=== PATIENT | female | born 1965 | race Caucasian/White ===

== ENCOUNTER 2020-06-30 02:02 | Outpatient (CLI) | payer OTHER, SELFPAY ==
[2020-06-30 17:23] LABS: SARS-CoV-2 RNA PCR Negative
== END 2020-06-30 02:03 | disposition home or self-care (01) ==
LOC: ANHCOVIDDT 02:02
PROVIDERS: PCP Internal Medicine; Visit Provider Internal Medicine Gastroenterology
DX: Z01.812 Encounter for preprocedural laboratory examination (principal); Z20.822 Contact with and (suspected) exposure to COVID-19
CPT/HCPCS: C9803; U0003

== ENCOUNTER 2020-07-03 01:20 | Day surgery (SDC) | payer OTHER, SELFPAY ==
[2020-06-20 11:08] VITALS: BMI 25.0
[2020-07-03 10:49] VITALS: BP 109/72; PULSE 86; RESP 16; TEMP 36.7; O2SAT 96
[2020-07-03] MEDS: LACTATED RINGERS 1,000 ML 150 ML IV CONT (11:04)
--- NOTE | 2020-07-03 11:23 | WPDANESEPPF ---
Anes - Initial Pre Proc Eval Procedure: Operation Date: 07/03/20 12:00 Proposed Procedures p Screening Colonoscopy - Wellington Whitt DO Date/Time: 07/03/20 11:23 Surgeon: Wellington Whitt DO Pre Op Diagnosis: hx of colon polyps Patient Data Age: 54 Gender: F Height: 5 ft Weight: 57.7 kg Last Vital Signs Temp 98.0 F 07/03/20 10:49 Pulse 86 07/03/20 10:49 Resp 16 07/03/20 10:49 BP 109/72 07/03/20 10:49 Pulse Ox 96 07/03/20 10:49 Allergies Allergy/AdvReac Type Severity Reaction Status Date / Time codeine AdvReac Severe Nausea and Verified 07/03/20 10:48 Vomiting Home Medications Medication Instructions Recorded Confirmed Type fluticasone propionate [Flonase 2 spray INTRANASAL DAILY PRN 05/02/19 06/20/20 History Allergy Relief] cholecalciferol (vitamin D3) 2,000 unit PO DAILY 06/20/20 06/20/20 History [Vitamin D3] estradiol-progesterone [Bijuva] 1 cap PO DAILY 06/20/20 06/20/20 History undvcpdvtfdz-fzjz-hgwuv acid 1 tablet PO DAILY 06/20/20 06/20/20 History [Centrum Women] omeprazole magnesium [Prilosec OTC] 20 mg PO DAILY PRN 06/20/20 06/20/20 History terbinafine HCl 250 mg PO DAILY 06/20/20 06/20/20 History trazodone 50 mg PO HS 06/20/20 06/20/20 History Patient hx anesthesia problems: none Family hx anesthesia problems: none PMFSH Past Medical History Medical History (Updated 07/03/20 @ 11:23 by Rancho Morales MD) Anemia GERD (gastroesophageal reflux disease) Social History Social History Smoking status: Never smoker Alcohol intake: current Drinks per week: 2 Substance use: never Substance use type: does not use Living arrangements: with family Spiritual care concerns: No Anes - Eval Final PreProcedure Day of Procedure 07/03/20 11:23 Patient weight: normal Heart: regular rate and rhythm Lungs: clear to auscultation Airway: Mallampati scale class II Neurological: alert and oriented Last oral intake: >/= 8 hours ASA classification: II Emergent: no Anesthetic plan: proceed Anesthesia type and monitoring: general GIVS and standard monitoring Informed Consent: The patient's anesthetic plan and its attendant risks and benefits were discussed with the patient/family/POA. Questions were solicited and answers provided to the satisfaction of the patient/family/POA.
--- NOTE | 2020-07-03 12:44 | PM.IMHP ---
H&P: HPI History of Present Illness Date/Time: 07/03/20 12:44 Chief Complaint: Reason for visit is colonoscopy. Narrative: Reason for visit is colonoscopy. This very pleasant lady seen in consultation request of the primary physician. Impression: [place] pleasant lady with history adenomatous colon polyps. She is here for screening and surveillance colonoscopy. She has had a change in bowel habits. Underlying inflammatory or neoplastic disease will be excluded. History of peptic ulcer disease. Recommendation: Colonoscopy. History: Virginie pleasant lady has a history adenomatous colon polyps. She reports increasing gas buildup. She noticed a change in her stools from more firm stool to a softer stool. This been going on for the last year. Hematochezia, melena and acholic stools at night. Abdominal pain is tonight. Fever, chills and night sweats at night. She is here for colonoscopy to assess for lung inflammatory neoplastic disease. The patient also has a history peptic ulcer disease. Upper gastrointestinal symptoms are denied. Physical examination: General: very pleasant patient in no acute distress. HEENT: Head was normocephalic sclerae is clear mouth without masses neck was supple. Heart: Rate rhythm regular without S3 or S4. Lungs: CTA. Abdomen: Soft with no guarding or rigidity. Bowel sounds were active. Neurologic: Cranial nerves 2 through 12 intact. No focal defects. No clonus. Musculoskeletal system: Revealed no joint tenderness or swelling no muscle atrophy. Extremities: Reveal no significant edema. Skin: Warm and dry with normal turgor. Mental status: intact. Patient is alert and oriented. Review of Systems Review of Systems: All systems reviewed & are unremarkable except as noted in HPI and below PMFSH Past Medical History Medical History (Updated 07/03/20 @ 11:23 by Rancho Morales MD) Anemia GERD (gastroesophageal reflux disease) Social History Social History Smoking status: Never smoker Alcohol intake: current Drinks per week: 2 Substance use: never Substance use type: does not use Living arrangements: with family Spiritual care concerns: No Meds Home Medications and Allergies Home Medications Medication Instructions Recorded Confirmed Type fluticasone propionate [Flonase 2 spray INTRANASAL DAILY PRN 05/02/19 06/20/20 History Allergy Relief] cholecalciferol (vitamin D3) 2,000 unit PO DAILY 06/20/20 06/20/20 History [Vitamin D3] estradiol-progesterone [Bijuva] 1 cap PO DAILY 06/20/20 06/20/20 History crtrunwzmeye-xtnv-bsgjc acid 1 tablet PO DAILY 06/20/20 06/20/20 History [Centrum Women] omeprazole magnesium [Prilosec OTC] 20 mg PO DAILY PRN 06/20/20 06/20/20 History terbinafine HCl 250 mg PO DAILY 06/20/20 06/20/20 History trazodone 50 mg PO HS 06/20/20 06/20/20 History Allergies Allergy/AdvReac Type Severity Reaction Status Date / Time codeine AdvReac Severe Nausea and Verified 07/03/20 10:48 Vomiting Vital Signs Vital Signs - 24 hr 07/03/20 10:49 Temperature 36.7 C Pulse Rate 86 Respiratory Rate 16 Blood Pressure 109/72 Pulse Oximetry 96
[2020-07-03 13:13] VITALS: BP 105/68; PULSE 68; RESP 19; O2SAT 96
[2020-07-03 13:23] VITALS: BP 104/66; PULSE 68; RESP 17; O2SAT 98
[2020-07-03 13:33] VITALS: BP 112/74; PULSE 63; RESP 15; O2SAT 100
== END 2020-07-03 13:47 | disposition home or self-care (01) ==
PROVIDERS: PCP Internal Medicine; Visit Provider Internal Medicine Gastroenterology
PROC: 0DJD8ZZ Inspection of Lower Intestinal Tract, Via Natural or Artificial Opening Endoscopic (ICD-10-PCS; CPT 45378; principal; 2020-07-03 12:00)
DX: Z12.11 Encounter for screening for malignant neoplasm of colon (principal); Z86.010 Personal history of colon polyps; D64.9 Anemia, unspecified; K21.9 Gastro-esophageal reflux disease without esophagitis; K27.9 Peptic ulcer, site unspecified, unspecified as acute or chronic, without hemorrhage or perforation
CPT/HCPCS: 45378; J2704; J7120

== ENCOUNTER 2020-09-19 16:01 | Emergency (ER) | payer OTHER, SELFPAY ==
[2020-09-19 16:06] VITALS: BP 127/77; PULSE 73; RESP 20; TEMP 37.4; O2SAT 99
--- NOTE | 2020-09-19 16:09 | ED.GENADULT ---
HPI - General Adult General Chief complaint: Abdominal Pain Stated complaint: abdominal pain Time Seen by Provider: 09/19/20 16:09 Source: patient Mode of arrival: ambulatory Limitations: no limitations History of Present Illness HPI narrative: 55-year-old female patient presents to the [facility] with complaints of abdominal pain. Patient states that she had lunch today at a new place and states she ate some quad and some fried food. Patient states she typically never eats fried food. Patient states about an hour and a half prior to coming to clinic started having some abdominal cramping has gotten more severe and now to the epigastric area. Otherwise in their interviewing and talking with the patient she suddenly decided that she needed to take her bra off because her bra was causing her to have chest pain. Patient was complaining of midsternal chest pain that radiated to her back with some shortness of breath and labored breathing during interview. Patient denies any nausea, vomiting or diarrhea. Related Data Home Medications Medication Instructions Recorded Confirmed cholecalciferol (vitamin D3) 2,000 unit PO DAILY 06/20/20 06/20/20 [Vitamin D3] estradiol-progesterone [Bijuva] 1 cap PO DAILY 06/20/20 06/20/20 eibkcqqcpazf-vkdw-majqf acid 1 tablet PO DAILY 06/20/20 06/20/20 [Centrum Women] trazodone 50 mg PO HS 06/20/20 06/20/20 Allergies Allergy/AdvReac Type Severity Reaction Status Date / Time codeine AdvReac Severe Nausea and Verified 07/03/20 10:48 Vomiting Review of Systems Review of Systems: Narrative: CONSTITUTIONAL: Denies fever, chills, or sweats. EYES: Denies visual changes, redness, or discharge. ENT: Denies rhinorrhea, congestion, sore throat, or otalgia. CARDIOVASCULAR: Positive midsternal chest pain, denies palpitations, or edema. RESPIRATORY: Denies cough positive dyspnea. GASTROINTESTINAL: Positive upper abdominal pain, nausea, denies vomiting, or diarrhea. GENITOURINARY: Denies dysuria or hematuria. SKIN: Denies rash or itching. MUSCULOSKELETAL: Positive mid back pain, denies joint pain, or myalgia. NEUROLOGIC: Denies headache, numbness, or weakness. PSYCHIATRIC: Denies anxiety or depression. [facility] Past Medical History Medical History (Updated 09/19/20 @ 16:34 by LIAM Dominguez) Anemia Bleeding acute gastric ulcer GERD (gastroesophageal reflux disease) Surgical History Surgical History (Updated 09/19/20 @ 16:11 by LIAM Dominguez) Joint replaced Left hip, right radial head, right humerus Social History Social History Smoking status: Never smoker Alcohol intake: current Drinks per week: 2 Substance use: never Substance use type: does not use Spiritual care concerns: No Comments At the time of my signature I agree with nursing past medical history, surgical, social, and family history. There is no relevant family history pertinent to the presenting complaint. Exam Narrative: Exam Narrative: GENERAL: Patient appears uncomfortable and in slight distress, well-nourished, HEAD: Normocephalic, atraumatic. EYES: PERRLA and EOMI. ENT: Nares clear, no rhinorrhea or epistaxis. Mucous membranes moist. NECK: Supple. No lymphadenopathy CHEST: Clear to auscultation. No respiratory distress. HEART: Regular rate and rhythm. No murmur heard. Normal peripheral pulses. ABDOMEN: Soft, distended. Positive guarding, no rebound tenderness, or rigid. Patient very tender to right upper quadrant, left upper quadrant and epigastric area on soft palpation. No pulsatilla masses. No organomegaly. Negative Sun?s sign. No periumbicial tenderness. No Supra public tenderness or distension. Good femoral pulses bilaterally. No hernia noted. No scars or surface trauma. EXTREMITIES: Normal range of motion. No edema. SKIN: Warm, dry, no rash. NEURO: No focal deficits. Alert and oriented x3. Course Vital Signs Vital signs
[2020-09-19 16:11] VITALS: BP 127/77; PULSE 73; RESP 20; TEMP 37.4; O2SAT 99
[2020-09-19] MEDS: ASPIRIN 81 MG CHEWABLE TABLET 324 MG PO (16:24)
[2020-09-19 16:28] VITALS: BP 116/72; PULSE 73
[2020-09-19 16:32] VITALS: BP 134/70; PULSE 66
--- NOTE | 2020-09-19 16:44 | ECG_ITS ---
Measurements Intervals [place] Rate: 65 P: 55 IN: 200 QRS: 42 QRSD: 90 T: 49 QT: 369 QTc: 384 Interpretive Statements SINUS RHYTHM LOW QRS VOLTAGE IN PRECORDIAL LEADS BORDERLINE ECG Electronically Signed On 09-19-2020 19:01:24 CDT by Last Bonilla D.O.
== END 2020-09-19 16:37 | disposition short-term general hospital (02) ==
PROVIDERS: Emergency Provider Nurse Practitioner Family; PCP Internal Medicine
DX: R06.02 Shortness of breath (principal); R10.11 Right upper quadrant pain; R10.12 Left upper quadrant pain; R10.13 Epigastric pain; R07.9 Chest pain, unspecified; K21.9 Gastro-esophageal reflux disease without esophagitis
CPT/HCPCS: 81003; 93005; 99215; A9270; G0463

== ENCOUNTER 2020-09-19 16:53 | Observation (INO) | payer OTHER, SELFPAY ==
--- NOTE | ~2020-09-19 | XR_ITS ---
EXAMINATION: XR chest 2V DATE: 09/19/2020 18:27 INDICATION: Abdominal pain. Chest pain. TECHNIQUE: Frontal and lateral views of the chest were obtained. COMPARISON: None. FINDINGS: The chest demonstrates clear lungs without pneumonia, pleural effusion, or pneumothorax. Th e heart size is normal. There are multiple old healed left rib fractures. There is plate and screw fi xation of right humerus. IMPRESSION: 1. No acute cardiopulmonary disease. Reviewed, dictated and finalized at location A.
--- NOTE | ~2020-09-19 | CT_ITS ---
EXAMINATION: CT chest abdomen pelvis w con DATE: 09/19/2020 22:05 INDICATION: Chest pain. Abdominal pain. TECHNIQUE: Computed tomography (CT) of the chest, abdomen, and pelvis was performed with 100 mL Omnip aque 350 intravenous contrast. Automated exposure control and iterative reconstruction technique were employed. The dose-length product was 326.70 mGy-cm. COMPARISON: None FINDINGS: CHEST CT: The lungs demonstrate minimal atelectasis. A calcified right lung nodule and calcified right hilar ly mph nodes are consistent with old granulomatous disease. No pleural effusion. The heart size is rosana l. No pericardial effusion. There are old healed left rib fractures. There is a hemangioma in T11 brad tebral body. ABDOMEN/PELVIS CT: The liver and spleen are normal. The gallbladder is distended. The common duct is dilated to 8 mm. Th e pancreas, adrenal glands, and kidneys are normal. There are no dilated loops of bowel. The appendix is not visualized. There are no pathologically enlarged lymph nodes. There is no free intraperitonea l fluid. There is plate and screw fixation of left acetabulum. IMPRESSION: 1. Gallbladder distention, which may be secondary to fasting. Correlate with physical exam to exclude acute cholecystitis. 2. Mildly dilated common duct. Reviewed, dictated and finalized at location A. IMPRESSION: 1. Gallbladder distention, which may be secondary to fasting. Correlate with ph ysical exam to exclude acute cholecystitis. 2. Mildly dilated common duct.
--- NOTE | ~2020-09-19 | NM_ITS ---
EXAMINATION: NM hepatobiliary w pharm DATE: 09/20/2020 14:14 INDICATION: Right upper quadrant abdominal pain. COMPARISON: None. TECHNIQUE: 5.1 mCi Tc-99m mebrofenin (Choletec) was administered intravenously. Scintigraphic images of the abdomen were obtained for one hour. 1.1 mcg sincalide (Kinevac) was administered by slow intr avenous infusion, and imaging was continued for 30 minutes. Gallbladder ejection fraction was calcula mariana by the technologist. FINDINGS: There is normal clearance of radiotracer from the blood pool. There is homogeneous tracer uptake by t he liver. Activity progresses to the gallbladder and bowel. The gallbladder ejection fraction (GBEF) is 20% (normal 10-90%, but most patient with gallbladder dysfunction have GBEF < 35% which does over lap with the normal range). IMPRESSION: 1. Gallbladder ejection fraction is at the lower range of normal. This could be normal but is also within the range of overlap with gallbladder dysfunction or chronic cholecystitis in the appropriate clinical setting. Reviewed, dictated and finalized at location A.
--- NOTE | ~2020-09-19 | US_ITS ---
US abdomen limited INDICATION: Abdomen pain PROCEDURE: Realtime right upper abdominal ultrasound. COMPARISON: No prior studies for comparison. FINDINGS: The pancreas is normal without focal mass or pancreatic ductal dilation. Liver echotexture is normal without focal mass or intrahepatic biliary dilatation. There is normal directional flow i n the portal vein. The gallbladder is normal without stones, gallbladder wall thickening or pericholecystic fluid. Comm on bile duct measures 7 mm. No sonographic Sun's sign. IMPRESSION: 1: Unremarkable limited abdominal ultrasound. Common bile duct upper normal. If there is concern for acalculous cholecystitis, consider correlation with nuclear hepatobiliary scan. Reviewed, dictated and finalized at location B. IMPRESSION: 1: Unremarkable limited abdominal ultrasound. Common bile duct upper normal. If there is concern for acalculous cholecystitis, consider correlation with nucle ar hepatobiliary scan.
--- NOTE | ~2020-09-19 | MR_ITS ---
EXAMINATION: MR MRCP wo/w con/w 3D wo ind DATE: 09/21/2020 12:16 INDICATION: Elevated liver enzymes. Abdominal pain. TECHNIQUE: Magnetic resonance imaging (MRI) of the abdomen was performed without and with 10 mL Multi eliezer intravenous contrast. Sequences included coronal T2-weighted SS-FSE, coronal T2-weighted FS SS- FSE, coronal T2-weighted FS FIESTA, axial T2-weighted FS FIESTA, axial T2-weighted FIESTA, sagittal T 2-weighted SS-FSE, axial T1-weighted dual-echo FSPGR, axial T2-weighted SS-FSE, axial T1-weighted LAV A, axial T2-weighted STIR FSE. Thick-slab T2-weighted FRFSE-XL images were obtained for magnetic reso nance cholangiopancreatography (MRCP). Rotating maximum intensity projection 3-D reconstructions of t he volumetric data were created by the technologist. Postcontrast sequences included a time course of axial T1-weighted LAVA. COMPARISON: CT dated 09/19/2020 FINDINGS: ABDOMEN MRI: Heart size is normal. No pericardial or pleural effusion. Liver, gallbladder, spleen, pa ncreas and bilateral adrenal glands are normal. Visualized bowels are unremarkable with no dilation t o suggest obstruction. There are couple low signal intensity fibroids at the fundus of the retroverte d uterus. Bladder is unremarkable. Small amount of likely physiologic free fluid in the pelvis. No pa thologically enlarged abdominal or pelvic lymphadenopathy. Large T1 hyperintense and fat saturating h emangioma at T11. Mild lumbar levocurvature with mild to moderate lumbar spondylosis. ABDOMEN MRCP: Mild dilation of the common bile duct to 7 mm in maximal diameter which tapers abruptly at the distal duct with no evident obstructing stones or masses. No intrahepatic biliary ductal dilation. Main quintanilla creatic duct is also normal in caliber. IMPRESSION: 1. Mild dilation of the common bile duct to 7 mm but without evident obstructing stones or masses. 2. Fibroid uterus. Reviewed, dictated and finalized at location A. IMPRESSION: 1. Mild dilation of the common bile duct to 7 mm but without evident obstructin g stones or masses. 2. Fibroid uterus.
[2020-09-19 18:07] VITALS: BP 125/74; PULSE 81; RESP 16; TEMP 37; O2SAT 100
--- NOTE | 2020-09-19 18:12 | ECG_ITS ---
Measurements Intervals [place] Rate: 74 P: 45 VA: 189 QRS: 50 QRSD: 86 T: 34 QT: 362 QTc: 402 Interpretive Statements SINUS RHYTHM BORDERLINE ST-T WAVE ABNORMALITY- INFERIOR LEADS BASELINE ARTIFACT- II, III, AVR, AVL, AVF, V5-V6 BORDERLINE ECG Electronically Signed On 09-19-2020 19:05:44 CDT by Last Bonilla D.O.
[2020-09-19 18:29] LABS: Basophils Absolute Auto 0.1 K/mm3 (0.0-0.1); Basophils Percent Auto 0.5 % (0.2-1.2); Eosinophils Absolute Auto 0.1 K/mm3 (0-0.3); Eosinophils Percent Auto 0.8 % (0-4.4); Hematocrit 35.4 % (37.0-47.0); Hemoglobin 12.6 g/dL (12.0-15.0); Immature Granulocyte Absolute 0.05 K/mm3 (0.00-0.031); Immature Granulocyte Percent A 0.4 % (0-0.5); Lymphocytes Absolute Auto 1.43 K/mm3 (0.9-3.2); Lymphocytes Percent Auto 10.9 % (18.3-44.2); Mean Corpuscular HGB Conc 35.6 g/dl (32-36); Mean Corpuscular Hemoglobin 30.2 pg (26-34); Mean Corpuscular Volume 84.9 fl (80-100); Mean Platelet Volume 9.3 fl (7.4-10.4); Monocytes Absolute Auto 0.9 K/mm3 (0.1-0.6); Monocytes Percent Auto 6.6 % (2.6-8.5); Neutrophils Absolute Auto 10.6 K/mm3 (1.3-6.7); Neutrophils Percent Auto 80.8 % (45.5-73.1); Platelet Count Result 260 k/mm3 (150-375); Red Blood Count 4.17 M/mm3 (4.2-5.4); Red Cell Distribution Width 12.2 % (11.5-14.5); White Blood Count 13.1 K/mm3 (4.5-10.0)
[2020-09-19 18:40] LABS: INR 0.9; Prothrombin Time 12.6 Seconds (11.1-14.7)
[2020-09-19 18:41] LABS: Partial Thromboplastin Time 25.9 SECONDS (22.3-36.8)
[2020-09-19 18:42] LABS: Alanine Aminotransferase 37 U/L (4-35); Albumin Level 4.3 g/dL (3.5-5.1); Alkaline Phosphatase 52 U/L (38-126); Anion Gap 8 mmol/L (8-16); Aspartate Amino Transferase 94 U/L (14-36); Bilirubin,Total 0.4 mg/dL (0.2-1.3); Blood Urea Nitrogen 11 mg/dL (7-17); Calcium 8.9 mg/dL (8.4-10.2); Carbon Dioxide 25 mmol/L (22-30); Chloride 101 mmol/L (98-107); Estimated CRCL calculation 50 ml/min; Estimated Glomerular Filt Rate > 60; Glucose 108 mg/dL (65-105); Lipase 170 U/L (23-300); Potassium 3.7 mmol/L (3.4-5.0); Sodium 134 mmol/L (137-145)
[2020-09-19 18:54] LABS: Troponin I < 0.012 ng/mL (0.000-0.034)
[2020-09-19 19:39] LABS: Add Urine Microscopic? YES; Amorphous Sediment Urine Few; Appearance Urine Cloudy (Clear); Bacteria Urine Trace /hpf; Bilirubin Urine Negative (Negative); Blood Urine Negative (Negative); Color Urine Amber (Yellow); Glucose Urine UA Negative (Negative); Ketones Urine Negative (Negative); Leukocyte Esterase Ur Negative LEU/UL (Negative); Mucus Urine Rare /lpf; Nitrate Urine Negative (Negative); Protein Urine 2+ mg/dL (Negative); RBC Urine 0-2 /hpf (0-2); Specific Grav Ur 1.017 (1.001-1.035); Squamous Epithelial Cell Urine Few /hpf (Few); Urobilinogen Urine Negative mg/dL (<2.0); WBC Urine 0-3 /hpf
[2020-09-19 19:49] VITALS: BP 99/83; PULSE 69; RESP 16; O2SAT 100
--- NOTE | 2020-09-19 20:32 | ED.ABDPAIN ---
HPI - Abdominal Pain General Chief Complaint: Abdominal Pain Stated Complaint: abd pain Time Seen by Provider: 09/19/20 20:29 Source: patient and family Mode of arrival: ambulatory Limitations: no limitations History of Present Illness HPI narrative: Patient is a 55-year-old female who presents for evaluation of abdominal pain and chest pain. Patient states that pain began around lunchtime after eating fried fish and onion rings. She reports initial upper abdominal pain that radiated to her back and now is mostly in the lower abdomen. She does report pain when she takes a deep breath. She denies any shortness of breath. She reports mild abdominal distention. No diarrhea or constipation. No fever, she does report nausea without vomiting. Patient was seen in an urgent care was told she had an abnormal EKG and was referred to this facility. Related Data Home Medications Medication Instructions Recorded Confirmed cholecalciferol (vitamin D3) 2,000 unit PO DAILY 06/20/20 06/20/20 [Vitamin D3] estradiol-progesterone [Bijuva] 1 cap PO DAILY 06/20/20 06/20/20 dnkeoylfhtds-reor-krnzc acid 1 tablet PO DAILY 06/20/20 06/20/20 [Centrum Women] trazodone 50 mg PO HS 06/20/20 06/20/20 Allergies Allergy/AdvReac Type Severity Reaction Status Date / Time codeine AdvReac Severe Nausea and Verified 07/03/20 10:48 Vomiting Review of Systems Review of Systems: Narrative: CONSTITUTIONAL: Denies fever, chills ENT: Denies rhinorrhea, congestion, sore throat, or otalgia. CARDIOVASCULAR: Reports chest pain without palpitations RESPIRATORY: Denies cough or dyspnea. GASTROINTESTINAL: Reports upper abdominal pain and nausea GENITOURINARY: Denies dysuria or hematuria. SKIN: Denies rash or itching. MUSCULOSKELETAL: Denies back pain, joint pain, reports myalgias NEUROLOGIC: Denies headache, numbness, or weakness. [facility] Past Medical History Medical History Anemia Bleeding acute gastric ulcer GERD (gastroesophageal reflux disease) Surgical History Surgical History Joint replaced Left hip, right radial head, right humerus Social History Social History Smoking status: Never smoker Alcohol intake: current Drinks per week: 2 Substance use: never Substance use type: does not use Spiritual care concerns: No Exam Narrative: Exam Narrative: GENERAL: Awake, alert, conversant HEAD: Normocephalic, atraumatic. EYES: PERRLA and EOMI. ENT: Nares clear, no rhinorrhea or epistaxis. Mucous membranes moist. NECK: Supple. CHEST: No respiratory distress, breathing even and non labored, no chest wall tenderness HEART: Regular rate, sinus rhythm ABDOMEN: Mild distention, tender to palpation in all 4 quadrants with guarding present, no rebound, nonrigid, positive epigastric and right upper quadrant tenderness EXTREMITIES: Normal range of motion. No edema. No calf tenderness bilaterally. SKIN: Warm, dry, no rash. NEURO:No focal deficits. Alert and oriented x3 Course Vital Signs Vital signs: Vital Signs Temperature 37.0 C 09/19/20 18:07 Pulse Rate 81 09/19/20 18:07 Respiratory Rate 16 09/19/20 18:07 Blood Pressure 125/74 09/19/20 18:07 Pulse Oximetry 100 09/19/20 18:07 Temperature 37.0 C 09/19/20 18:07 Pulse Rate 69 09/19/20 19:49 Respiratory Rate 16 09/19/20 19:49 Blood Pressure 99/83 L 09/19/20 19:49 Pulse Oximetry 100 09/19/20 19:49 MDM - Abdominal Pain MDM Narrative Medical decision making narrative: Patient presented for evaluation of upper abdominal pain after eating a fish fried meal at lunch. Patient vital signs stable at the time of assessment. Patient's laboratory results notable for leukocytosis. Mild transaminitis. Imaging is concerning for distended gallbladder with a dilated common bile duct. This is concern
[2020-09-19] MEDS: SODIUM CHLORIDE 0.9% IV 1,000 ML 999 ML IV CONT (21:44)
[2020-09-19] MEDS: ONDANSETRON INJ 4 MG/2 ML VIAL IV PUSH (21:44)
[2020-09-20 00:31] VITALS: BP 115/70; PULSE 68; RESP 16; O2SAT 98
[2020-09-20 01:07] LABS: Troponin I < 0.012 ng/mL (0.000-0.034)
[2020-09-20 01:13] VITALS: BMI 23.5
--- NOTE | 2020-09-20 01:13 | PC.NURSE ---
This patient, Osiris Queen, was admitted to 3 [facility] Surg Room 300-01 @0100. Patient/family oriented to hospital policies and general routines including ID bracelet, bed and alarms, visiting hours, pain management, procedures, bathroom and other care routines, personal items, smoking policy, room service/diet, and visiting hours. Information on how to activate the Rapid Response Team has been discussed. Patient/Family are encouraged to report perceived risks to care and to ask questions if they do not understand what they are told or what they should do.
[2020-09-20 01:15] VITALS: BP 120/83; PULSE 80; RESP 16; TEMP 36.8; O2SAT 99
[2020-09-20 01:32] VITALS: BMI 25.4
[2020-09-20 06:00] VITALS: BP 108/63; PULSE 77; RESP 18; TEMP 36.4; O2SAT 100
[2020-09-20] MEDS: SODIUM CHLORIDE 0.9% IV 1,000 ML 125 ML IV CONT (06:28)
[2020-09-20 06:43] LABS: Basophils Absolute Auto 0.1 K/mm3 (0.0-0.1); Basophils Percent Auto 0.8 % (0.2-1.2); Eosinophils Absolute Auto 0.1 K/mm3 (0-0.3); Eosinophils Percent Auto 2.1 % (0-4.4); Hematocrit 35.4 % (37.0-47.0); Hemoglobin 12.2 g/dL (12.0-15.0); Immature Granulocyte Absolute 0.03 K/mm3 (0.00-0.031); Immature Granulocyte Percent A 0.5 % (0-0.5); Lymphocytes Absolute Auto 1.62 K/mm3 (0.9-3.2); Lymphocytes Percent Auto 24.6 % (18.3-44.2); Mean Corpuscular HGB Conc 34.5 g/dl (32-36); Mean Corpuscular Volume 87.2 fl (80-100); Mean Platelet Volume 9.6 fl (7.4-10.4); Monocytes Absolute Auto 0.6 K/mm3 (0.1-0.6); Monocytes Percent Auto 8.6 % (2.6-8.5); Neutrophils Absolute Auto 4.2 K/mm3 (1.3-6.7); Neutrophils Percent Auto 63.4 % (45.5-73.1); Platelet Count Result 244 k/mm3 (150-375); Red Blood Count 4.06 M/mm3 (4.2-5.4); Red Cell Distribution Width 12.3 % (11.5-14.5); White Blood Count 6.6 K/mm3 (4.5-10.0)
[2020-09-20 07:01] LABS: Alanine Aminotransferase 401 U/L (4-35); Albumin Level 3.8 g/dL (3.5-5.1); Alkaline Phosphatase 55 U/L (38-126); Anion Gap 3 mmol/L (8-16); Aspartate Amino Transferase 663 U/L (14-36); Bilirubin,Total 0.3 mg/dL (0.2-1.3); Blood Urea Nitrogen 8 mg/dL (7-17); Calcium 8.3 mg/dL (8.4-10.2); Carbon Dioxide 27 mmol/L (22-30); Chloride 109 mmol/L (98-107); Estimated CRCL calculation 41 ml/min; Estimated Glomerular Filt Rate 58; Glucose 87 mg/dL (65-105); Potassium 4.2 mmol/L (3.4-5.0); Sodium 139 mmol/L (137-145)
--- NOTE | 2020-09-20 10:08 | PM.IMHP ---
H&P: HPI History of Present Illness Date/Time: 09/20/20 10:08 Chief Complaint: Epigastric abdominal pain, substernal chest pain Narrative: This is a 55-year-old female with a history of gastric and duodenal ulcers, and H. pylori, who presented to the ER with complaints of epigastric abdominal pain and substernal chest pain. She reports eating fried fish and onion rings for lunch yesterday. About an hour after eating, she had a sudden onset of epigastric pain. She reports also developing associated bloating and lower abdominal cramping. She reports having more sharp and severe pain in the epigastric area and substernal area. No associated nausea, vomiting, or fever. By 3:00 p.m., she decided to leave work and drive directly to the urgent care. An ambulance was called at the Urgent Care to transport the patient to the ER for further evaluation of the substernal chest pain and abdominal pain. In the ER, EKG showed no ischemic changes and she has had troponins x2 negative. Labs showed white blood cell count 13,100, AST 94, ALT 37, total bilirubin 0.4, alk-phos 52, and lipase 170. CT scan of chest, abdomen, and pelvis showed gallbladder distention and mild common bile duct dilation. No cholelithiasis or other acute findings on the CT. Our service was contacted by the ED physician and the patient was admitted for surgical evaluation of possible acute cholecystitis. She was started on broad-spectrum IV antibiotics, IV fluids, analgesics, and made NPO. Right upper quadrant ultrasound was ordered for this morning. This has since come back completely normal with no cholelithiasis and common bile duct measuring 7 mm, high end of normal. The patient is now being seen on the medical floor. Labs this morning showed a normal white blood cell count and increase in AST and ALT. She has been afebrile since admission. The patient reports about a 30% improvement in her abdominal and chest pain. She reports the substernal chest pain is primarily when taking a deep breath. Deep breathing also aggravates her epigastric and right upper quadrant abdominal pain. She felt her pain had improved significantly in the morning until they had done the ultrasound, which has aggravated her pain again. Still no nausea or vomiting. She reports the initial epigastric pain that she felt after lunch yesterday was similar to the pain she experienced when having gastric ulcers in the past, but the pain changed as time went on. She denies melena or black tarry stools. She denies a known history of gallstones. No other complaints at this time. Review of Systems Constitutional: Constitutional: Reports as per HPI, Reports chills, Denies fatigue, Denies fever(s) and Denies weakness Eyes: Eyes: Reports no additional eye complaints and Denies change in vision ENT: Reports Normal hearing present, Denies dizziness and Denies headache(s) Cardiovascular: Cardiovascular: Reports as per HPI, Reports no additional cardiovascular complaints, Reports chest pain (substernal chest pain with deep breath), Denies chest pain at rest, Denies syncope, Reports rapid heart rate, Denies leg edema, Denies lightheadedness and Denies radiating jaw, neck or arm pain Respiratory: Respiratory: Reports no additional respiratory complaints, Denies cough, Denies dyspnea and Denies wheezing Gastrointestinal: Gastrointestinal: Reports as per HPI, Reports no additional gastrointestinal complaints, Reports abdominal pain, Denies melena, Reports bloating, Denies hematochezia, Denies change in bowel habits, Denies constipation, Reports GI cramping, Denies diarrhea, Denies nausea and Denies vomiting Genitourinary: Genitourinary: Reports no additional female genitourinary complaints, Denies hematuria and Denies dysuria Musculoskeletal: Musculoskeletal: Reports no additional musculoskeletal complaints, Denies deformity, Denies joint swelling, Denies radiating pain into limb and Denies tingling Integumentary/Breasts:
[2020-09-20 14:00] VITALS: BP 112/75; PULSE 65; RESP 20; TEMP 37.2; O2SAT 99
[2020-09-20] MEDS: SODIUM CHLORIDE 0.9% IV 1,000 ML 75 ML IV CONT (17:53)
[2020-09-20 22:00] VITALS: BP 110/67; PULSE 71; RESP 20; TEMP 36.4; O2SAT 98
[2020-09-21 06:00] VITALS: BP 97/57; PULSE 64; RESP 16; TEMP 37.1; O2SAT 98
[2020-09-21 06:40] LABS: Hematocrit 31.1 % (37.0-47.0); Hemoglobin 10.8 g/dL (12.0-15.0); Mean Corpuscular HGB Conc 34.7 g/dl (32-36); Mean Corpuscular Hemoglobin 29.8 pg (26-34); Mean Corpuscular Volume 85.7 fl (80-100); Mean Platelet Volume 9.6 fl (7.4-10.4); Platelet Count Result 213 k/mm3 (150-375); Red Blood Count 3.63 M/mm3 (4.2-5.4); Red Cell Distribution Width 12.5 % (11.5-14.5)
[2020-09-21 06:54] LABS: Alanine Aminotransferase 235 U/L (4-35); Albumin Level 3.3 g/dL (3.5-5.1); Alkaline Phosphatase 46 U/L (38-126); Anion Gap 4 mmol/L (8-16); Aspartate Amino Transferase 165 U/L (14-36); Bilirubin,Total 0.2 mg/dL (0.2-1.3); Blood Urea Nitrogen 6 mg/dL (7-17); Calcium 8.1 mg/dL (8.4-10.2); Carbon Dioxide 24 mmol/L (22-30); Chloride 110 mmol/L (98-107); Estimated CRCL calculation 45 ml/min; Estimated Glomerular Filt Rate > 60; Glucose 84 mg/dL (65-105); Potassium 3.4 mmol/L (3.4-5.0); Sodium 138 mmol/L (137-145)
[2020-09-21] MEDS: SODIUM CHLORIDE 0.9% IV 1,000 ML 75 ML IV CONT ×2 (07:36→21:27)
--- NOTE | 2020-09-21 10:45 | PM.PNGS ---
Progress Note: A&P Assessment and Plan (1) Abdominal pain: Qualifiers: Abdominal location: upper abdomen, unspecified Qualified Code(s): R10.10 - Upper abdominal pain, unspecified Code(s): R10.9 - Unspecified abdominal pain Status: Acute Assessment and Plan: CT chest/abdomen/pelvis showed gallbladder distention with mildly dilated common bile duct, no cholelithiasis. RUQ US normal, no cholelithiasis. HIDA showed GB ejection fraction 20%. She continues to have epigastric abdominal pain, although improved. Acute cholecystitis ruled out, will stop IV antibiotics today. The pain does not seem to be solely related to her gallbladder. GI has been consulted. MRCP ordered for today due to elevated LFTs. We considered starting her on a PPI with concern of an ulcer, but will allow GI to evaluate and decide on this. I have made her NPO this morning pending the MRCP and GI evaluation. Repeat labs again tomorrow morning. (2) Transaminitis: Code(s): R74.01 - Elevation of levels of liver transaminase levels Status: Acute Assessment and Plan: LFTs down on this morning's labs. MRCP ordered today by GI. Additional Plan I discussed the plan of care with Dr. Ryan. Subjective Subjective Date/Time Seen: 09/21/20 10:00 Patient reports: no new complaints, feels better, pain is less, flatus and bowel movement Interval history: Patient reports that her abdominal pain has improved more today. Still epigastric abdominal pain. Reports that after eating yogurt this morning, it did seem to aggravate her abdominal pain. No nausea or vomiting. Still feels bloated, but again better today. Passing gas and has had two small BMs. She reports that today her abdominal pain (which she rates at a 1-2/10 scale) feels more like ulcerative pain she has had in the past. Review of Systems Review of Systems: All systems reviewed & are unremarkable except as noted in HPI and below Constitutional: Constitutional: Denies fever(s) Exam Const: General: comfortable, no acute distress, alert and awake Orientation/consciousness: patient oriented x3 Resp: Effort & Inspection: normal respiratory effort Auscultation: clear to auscultation bilaterally Cardio: Rate: regular rate Rhythm: regular rhythm GI: Inspection: normal to inspection and non-distended GI Palp: Yes Soft to palpation, Yes Tenderness to palpation present (GI) (mild tenderness throughout, worse in epigastric area), No Guarding due to palpation present (GI), No Hernia present and No Rebound tenderness present Auscultation: normal bowel sounds Skin: General skin exam: normal color Neuro: General: patient oriented x3 and no focal motor deficits Psych: Mental Status: mental status grossly normal Insight: Good insight present (Psych) Judgement: Good judgement present (Psych) Objective Data Vital Signs Vital Signs: Vital Signs - 24 hr 09/20/20 14:00 09/20/20 22:00 09/21/20 06:00 Temperature 98.9 F 97.5 F L 98.8 F Pulse Rate 65 71 64 Respiratory Rate 20 20 16 Blood Pressure 112/75 110/67 97/57 L Pulse Oximetry 99 98 98 Intake/Output Intake/Output: Intake & Output 09/18/20 09/19/20 09/20/20 09/21/20 23:59 23:59 23:59 23:59 Intake Total 1100 1970 1750 Output Total 400 1600 Balance 1100 1570 150 Meds/Results Medications: Active Medications Generic Name Dose Route Start Last Admin Trade Name Freq PRN Reason Stop Dose Admin Acetaminophen 1,000 mg 09/21/20 10:30 Acetaminophen 500 Mg Tablet PO Q6H PRN Mild Pain (1-3) or Fever Hydrocodone Bitart/Acetaminophen 1 tab 09/21/20 10:30 Hydrocodone/Acetaminophen (*Crx) 5-325 Mg Tablet PO Q6H PRN Pain Rated 4-6 Sodium Chloride 1,000 mls @ 75 mls/hr 09/19/20 23:15 09/21/20 07:36 Normal Saline Iv IV CONT 75 mls/hr .[id number] XOCHITL Administration Morphine Sulfate 2 mg 09/19/20 23:14 Morphine Sulfate (*Crx) 4 Mg/Ml Inj IV PUSH Q2H PRN Leslie
[2020-09-21 14:00] VITALS: BP 125/71; PULSE 58; RESP 16; TEMP 36.8; O2SAT 99
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
[2020-09-21 22:00] VITALS: BP 123/67; PULSE 61; RESP 16; TEMP 36.1; O2SAT 97
[2020-09-22] VITALS (9 sets, daily range): BP systolic 109–138; BP diastolic 66–82; PULSE 50–95; RESP 13–24; TEMP 36.4–37.1; O2SAT 95–100
[2020-09-22 06:17] LABS: Alanine Aminotransferase 179 U/L (4-35); Albumin Level 3.6 g/dL (3.5-5.1); Alkaline Phosphatase 47 U/L (38-126); Anion Gap 5 mmol/L (8-16); Aspartate Amino Transferase 85 U/L (14-36); Bilirubin,Total 0.2 mg/dL (0.2-1.3); Blood Urea Nitrogen 5 mg/dL (7-17); Calcium 8.5 mg/dL (8.4-10.2); Carbon Dioxide 25 mmol/L (22-30); Chloride 107 mmol/L (98-107); Estimated CRCL calculation 50 ml/min; Estimated Glomerular Filt Rate > 60; Glucose 84 mg/dL (65-105); Potassium 3.5 mmol/L (3.4-5.0); Sodium 137 mmol/L (137-145)
[2020-09-22 07:30] LABS: Hepatitis B Surface Antigen Negative (Negative)
[2020-09-22 07:36] LABS: HAV RESULT Negative (Negative); Hepatitis B Core IgM Result Negative (Negative)
[2020-09-22 07:48] LABS: Hepatitis C Virus Antibody Negative (Negative)
[2020-09-22] MEDS: PANTOPRAZOLE SODIUM IV 40 MG VIAL IV PUSH (08:33)
[2020-09-22] MEDS: ACETAMINOPHEN 500 MG TABLET 1000 MG PO (08:39)
--- NOTE | 2020-09-22 09:41 | PM.DS ---
DS: Admitting Diagnosis Admitting Diagnosis Admitting Diagnosis: Abdominal pain possible biliary colic DS: Discharge Diagnosis Discharge Diagnosis (1) Biliary colic: Onset Date: ~09/19/20 Code(s): K80.50 - Calculus of bile duct without cholangitis or cholecystitis without obstruction Status: Acute Assessment and Plan: Patient presented to the emergency room with upper abdominal pain radiating up into her chest bilaterally and into the back. Initial CT scan suggested thickening of the gallbladder wall but no stool stones were seen in the gallbladder and there was some dilation of the common bile duct. Therefore, in view of the patient's history of a fatty meal prior to onset of the pain she was admitted for possible biliary colic and ultrasound ordered for the morning. (Ultrasound was negative for stones the following morning so further workup ensued). (2) Upper abdominal pain: Onset Date: ~09/19/20 Code(s): R10.10 - Upper abdominal pain, unspecified Status: Acute Assessment and Plan: This was the main reason for her admission. Further workup has shown ultrasound that is negative for gallstones or significant problems with the gallbladder but still slightly a dilated common bile duct. Liver function tests showed elevation of the intrinsic liver enzymes AST/ ALT. These of also slowly coming down. Subsequent HIDA scan with ejection fraction to check the function of the gallbladder showed that she did not have acute cholecystitis and that there was a low normal ejection fraction from the gallbladder. This may indicate some element of biliary dyskinesia. Interestingly, the patient had no pain whatsoever during the HIDA scan test and the administration of cholecystokinin for the ejection fraction calculation. If her liver function tests come down to normal would consider a short trial of Actigall to see if this would improve gallbladder function and minimize crystalization within the bile since her gallbladder is functioning at a lower level than normal. GI consultation with Dr. Morrow yielded a order for MRCP which essentially was negative other than mild common bile duct dilation. EGD is planned for 09/22/2020. (3) History of gastric ulcer: Onset Date: ~2014 Code(s): Z87.19 - Personal history of other diseases of the digestive system Status: Acute Assessment and Plan: Patient does have a history of GI ulceration. Therefore will have EGD today(09/22). Will await results. ---- see below --Gastritis (4) Abnormal CT of the abdomen: Code(s): R93.5 - Abnormal findings on diagnostic imaging of other abdominal regions, including retroperitoneum Status: Acute (5) Transaminitis: Onset Date: ~09/19/20 Code(s): R74.01 - Elevation of levels of liver transaminase levels Status: Acute Assessment and Plan: AST and ALT have been elevated during her admission. Total bilirubin out fossa been normal. Hepatitis screen was negative. Patient's AST and ALT are down somewhat day of discharge. Will repeat CMP in 1 week and further discuss this with the patient. Since she may have some element of biliary dyskinesia 0 may consider using a trial of Actigall to see if this will help the gallbladder function over the period of the next 3-6 months then repeat another HIDA scan. Would do this only if her liver functions come down to normal since 1 of the side effects of the Actigall is to elevate the intrinsic liver enzymes by injury to the hepatic sites. Will await further results of EGD and GI consultation. (6) Erosive gastritis: Code(s): K29.60 - Other gastritis without bleeding Status: Acute Assessment and Plan: EGD on 09/22/[address] Morrow showed some erosive gastritis and a small hiatal hernia. He recommended checking the H pylori biopsy study and treating for that only if it is positive. Apparently the biopsies were sent to lab in
[2020-09-22] MEDS: SODIUM CHLORIDE 0.9% IV 1,000 ML 75 ML IV CONT (11:52)
--- NOTE | 2020-09-22 13:37 | PC.NURSE ---
To GI Lab per altagracia, IV 22 LT HAND. Spoke to GI lab this morning. at bedside.
[2020-09-22] MEDS: LACTATED RINGERS 1,000 ML 150 ML IV CONT (13:53)
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
[2020-09-22] MEDS: BENZOCAINE (*SP) 60 ML SPRAY CAN (HURRICAINE) 1 SPRAY MUCOUS MEM (14:50)
== END 2020-09-22 18:50 | disposition home or self-care (01) ==
LOC: ANHED 23:17 → ANH3MEDSUR 09-20 00:19
PROVIDERS: Internal Medicine Gastroenterology; Nurse Practitioner Family; Admitting Provider Surgery; Emergency Provider Emergency Medicine; PCP Internal Medicine; Visit Provider Surgery
PROC: 0DJ08ZZ Inspection of Upper Intestinal Tract, Via Natural or Artificial Opening Endoscopic (ICD-10-PCS; CPT 43235; principal; 2020-09-22 16:45)
DX: K80.50 Calculus of bile duct without cholangitis or cholecystitis without obstruction (principal); R10.10 Upper abdominal pain, unspecified; R74.01 Elevation of levels of liver transaminase levels; R93.5 Abnormal findings on diagnostic imaging of other abdominal regions, including retroperitoneum; K44.9 Diaphragmatic hernia without obstruction or gangrene; K29.60 Other gastritis without bleeding; R11.0 Nausea; K21.9 Gastro-esophageal reflux disease without esophagitis; D64.9 Anemia, unspecified; D25.9 Leiomyoma of uterus, unspecified; Z87.11 Personal history of peptic ulcer disease
CPT/HCPCS: 43239; 36415; 71046; 71260; 74177; 74183; 76376; 76705; 78227; 80053; 80074; 81001; 81025; 83690; 84484; 85025; 85027; 85610; 85730; 88305; 93005; 96361; 96365; 96366; 96367; 96374; 96375; 99285; A9270; A9537; A9577; C9113; G0378; J0131; J2405; J2543; J2704; J2805; J7030; J7120; Q9967

== ENCOUNTER 2020-10-04 17:36 | Outpatient (CLI) | payer OTHER, SELFPAY ==
[2020-10-04 17:57] LABS: Alanine Aminotransferase 19 U/L (4-35); Albumin Level 4.6 g/dL (3.5-5.1); Alkaline Phosphatase 51 U/L (38-126); Anion Gap 5 mmol/L (8-16); Aspartate Amino Transferase 25 U/L (14-36); Bilirubin,Total 0.2 mg/dL (0.2-1.3); Blood Urea Nitrogen 9 mg/dL (7-17); Carbon Dioxide 29 mmol/L (22-30); Chloride 102 mmol/L (98-107); Estimated Glomerular Filt Rate > 60; Glucose 99 mg/dL (65-105); Potassium 4.2 mmol/L (3.4-5.0); Sodium 136 mmol/L (137-145)
== END 2020-10-04 17:37 | disposition home or self-care (01) ==
PROVIDERS: PCP Internal Medicine; Visit Provider Surgery
DX: R74.01 Elevation of levels of liver transaminase levels (principal)
CPT/HCPCS: 36415; 80053

== ENCOUNTER 2020-10-12 15:42 | Outpatient (CLI) | payer OTHER, SELFPAY ==
[2020-10-15 17:31] LABS: Rotavirus Stool Not Detected
== END 2020-10-12 15:43 | disposition home or self-care (01) ==
LOC: ANHLAB 15:44
PROVIDERS: PCP Internal Medicine; Visit Provider Internal Medicine Gastroenterology
DX: R19.7 Diarrhea, unspecified (principal)
CPT/HCPCS: 87045; 87046; 87177; 87209; 87324; 87425; 87427; 89055

== ENCOUNTER 2020-10-26 11:39 | Outpatient (CLI) | payer OTHER, SELFPAY ==
[2020-10-26 12:46] LABS: CRP 0.6 mg/dL (<1.0)
[2020-10-26 12:57] LABS: Erythrocyte Sedimentation Rate 15 mm/hr (0-20)
[2020-11-01 20:07] LABS: Tissue Transglutaminase IgA Ab 1 U/mL (<4)
[2020-11-01 22:31] LABS: Tissue Transglutaminase IgG Ab 1 U/mL (<6)
== END 2020-10-26 11:40 | disposition home or self-care (01) ==
PROVIDERS: PCP Internal Medicine; Visit Provider Internal Medicine Gastroenterology
DX: R19.7 Diarrhea, unspecified (principal)
CPT/HCPCS: 36415; 83516; 85652; 86140

== ENCOUNTER 2021-02-05 01:47 | Day surgery (SDC) | payer OTHER, SELFPAY ==
[2021-01-29 14:31] VITALS: BMI 23.2
[2021-02-05 06:56] VITALS: BMI 25.2
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
[2021-02-05 07:25] VITALS: BP 112/78; PULSE 75; RESP 18; TEMP 36.5; O2SAT 98
[2021-02-05] MEDS: LACTATED RINGERS 1,000 ML 150 ML IV CONT (07:26)
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
[2021-02-05 08:09] VITALS: BP 107/67; PULSE 68; RESP 19; O2SAT 98
[2021-02-05 08:19] VITALS: BP 108/67; PULSE 67; RESP 17; O2SAT 98
[2021-02-05 08:29] VITALS: BP 111/72; PULSE 65; RESP 17; O2SAT 99
== END 2021-02-05 08:45 | disposition home or self-care (01) ==
PROVIDERS: PCP Internal Medicine; Visit Provider Internal Medicine Gastroenterology
PROC: 0DJD8ZZ Inspection of Lower Intestinal Tract, Via Natural or Artificial Opening Endoscopic (ICD-10-PCS; CPT 45330; principal; 2021-02-05 08:00)
DX: R19.7 Diarrhea, unspecified (principal); K21.9 Gastro-esophageal reflux disease without esophagitis; Z87.11 Personal history of peptic ulcer disease
CPT/HCPCS: 45380; 88305; J2704; J7120

== ENCOUNTER 2021-05-19 10:32 | Emergency (ER) | payer OTHER, SELFPAY ==
[2021-05-19 10:43] VITALS: BP 116/70; PULSE 86; RESP 16; TEMP 36.7; O2SAT 98
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
== END 2021-05-19 11:15 | disposition home or self-care (01) ==
PROVIDERS: Emergency Provider Registered Nurse; PCP Internal Medicine
DX: S39.012A Strain of muscle, fascia and tendon of lower back, initial encounter (principal); X50.9XXA Other and unspecified overexertion or strenuous movements or postures, initial encounter; K21.9 Gastro-esophageal reflux disease without esophagitis
CPT/HCPCS: 99213; G0463

== ENCOUNTER 2022-07-11 16:39 | Outpatient (CLI) | payer OTHER, SELFPAY ==
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
== END 2022-07-11 16:40 | disposition home or self-care (01) ==
PROVIDERS: PCP Internal Medicine; Visit Provider Family Medicine
DX: Z13.820 Encounter for screening for osteoporosis (principal); Z78.0 Asymptomatic menopausal state
CPT/HCPCS: 77080

== ENCOUNTER 2023-01-17 09:03 | Outpatient (CLI) | payer OTHER, SELFPAY ==
[2023-01-17 09:59] LABS: Anion Gap 5 mmol/L (8-16); Blood Urea Nitrogen 11 mg/dL (7-17); Calcium 9.1 mg/dL (8.4-10.2); Carbon Dioxide 28 mmol/L (22-30); Chloride 100 mmol/L (98-107); Cholesterol 224 mg/dL (0-200); Estimated Glomerular Filt Rate > 60; Glucose 89 mg/dL (65-110); HDL Direct 75 mg/dL; Sodium 133 mmol/L (137-145); Triglycerides 92 mg/dL (<150)
[2023-01-17 10:10] LABS: LDL Cholesterol Direct 131 mg/dL
[2023-01-17 10:32] LABS: Vitamin D 25 Hydroxy 38.4 ng/mL
== END 2023-01-17 09:04 | disposition home or self-care (01) ==
LOC: ANHLAB 09:04
PROVIDERS: PCP Family Medicine; Visit Provider Family Medicine
DX: E55.9 Vitamin D deficiency, unspecified (principal); Z13.1 Encounter for screening for diabetes mellitus; Z13.220 Encounter for screening for lipoid disorders; Z13.29 Encounter for screening for other suspected endocrine disorder
CPT/HCPCS: 36415; 80048; 80061; 82306; 84443

== ENCOUNTER 2023-01-31 15:21 | Emergency (ER) | payer OTHER, SELFPAY ==
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
[2023-01-31 15:31] VITALS: BP 114/85; PULSE 77; RESP 16; TEMP 37.1; O2SAT 99
[2023-01-31 15:35] VITALS: BP 114/85; PULSE 77; RESP 16; TEMP 37.1; O2SAT 99
== END 2023-01-31 15:49 | disposition home or self-care (01) ==
PROVIDERS: Emergency Provider Nurse Practitioner Family; PCP Family Medicine
DX: N30.00 Acute cystitis without hematuria (principal); K21.9 Gastro-esophageal reflux disease without esophagitis; G62.9 Polyneuropathy, unspecified
CPT/HCPCS: 81003; 87086; 99213; G0463

== ENCOUNTER 2023-12-31 19:45 | Emergency (ER) | payer OTHER, SELFPAY ==
[2023-12-31 19:46] VITALS: BP 149/88; PULSE 83; RESP 16; TEMP 36.6; O2SAT 100
--- NOTE | 2023-12-31 19:50 | ECG_ITS ---
Test Date: 2023-12-31 19:53:59 Measurements Intervals [place] Rate: 80 P: 47 TN: 195 QRS: 26 QRSD: 80 T: 18 QT: 336 QTc: 389 Interpretive Statements SINUS RHYTHM BASELINE ARTIFACT- I, II, III, AVR, AVL, AVF NORMAL ECG No previous ECG available for comparison Electronically Signed On 12-31-2023 20:23:17 CDT by Last Bonilla D.O.
--- NOTE | 2023-12-31 21:03 | PC.NURSE ---
Patient up to desk stating she is feeling better and would like to go home to get a good night rest. Patient ambulatory out of ED with steady gait and in no obvious distress.
== END 2023-12-31 21:03 | disposition left against medical advice (07) ==
PROVIDERS: Emergency Provider Emergency Medicine; PCP Family Medicine
DX: R42 Dizziness and giddiness (principal); R11.0 Nausea
CPT/HCPCS: 93005; 99199

== ENCOUNTER 2024-01-08 16:49 | Outpatient (CLI) | payer OTHER, SELFPAY ==
[2024-01-08 17:41] LABS: Basophils Absolute Auto 0.1 K/mm3 (0.0-0.1); Basophils Percent Auto 0.9 % (0.2-1.2); Eosinophils Absolute Auto 0.2 K/mm3 (0-0.3); Eosinophils Percent Auto 2.5 % (0-4.4); Hematocrit 39.5 % (37.0-47.0); Hemoglobin 13.3 g/dL (12.0-15.0); Immature Granulocyte Absolute 0.02 K/mm3 (0.00-0.031); Immature Granulocyte Percent A 0.3 % (0-0.5); Lymphocytes Percent Auto 35.5 % (18.3-44.2); Mean Corpuscular HGB Conc 33.7 g/dl (32-36); Mean Corpuscular Hemoglobin 29.7 pg (26-34); Mean Corpuscular Volume 88.2 fl (80-100); Mean Platelet Volume 9.6 fl (7.4-10.4); Monocytes Absolute Auto 0.7 K/mm3 (0.1-0.6); Monocytes Percent Auto 10.7 % (2.6-8.5); Neutrophils Absolute Auto 3.4 K/mm3 (1.3-6.7); Neutrophils Percent Auto 50.1 % (45.5-73.1); Platelet Count Result 260 k/mm3 (150-375); Red Blood Count 4.48 M/mm3 (4.2-5.4); Red Cell Distribution Width 12.4 % (11.5-14.5); White Blood Count 6.8 K/mm3 (4.5-10.0)
[2024-01-08 17:50] LABS: Anion Gap 10 mmol/L (4-12); Blood Urea Nitrogen 17 mg/dL (7-17); Calcium 9.1 mg/dL (8.4-10.2); Carbon Dioxide 26 mmol/L (22-30); Chloride 97 mmol/L (98-107); Estimated Glomerular Filt Rate > 60; Glucose 104 mg/dL (65-110); Potassium 3.9 mmol/L (3.4-5.0); Sodium 133 mmol/L (137-145)
[2024-01-09 14:54] LABS: Lyme Disease Ab (IgM), Blot NEGATIVE (NEGATIVE); Lyme Disease Ab(IgG), Blot NEGATIVE (NEGATIVE)
== END 2024-01-08 16:50 | disposition home or self-care (01) ==
LOC: ANHLAB 16:51
PROVIDERS: PCP Family Medicine; Visit Provider Physician Assistant Medical
DX: R53.1 Weakness (principal); R51.9 Headache, unspecified
CPT/HCPCS: 36415; 80048; 84443; 85025; 86617

== ENCOUNTER 2024-01-09 17:00 | Outpatient (CLI) | payer OTHER, SELFPAY ==
[2024-01-12 12:53] LABS: EBV Nuclear Ab Antibody <18.00 U/mL; EBV Virus Capsid Ag IgM Ab <36.00 U/mL
[2024-01-12 15:08] LABS: CMV IgG Antibody >10.00 U/mL; CMV IgM Antibody <30.00 AU/mL
== END 2024-01-09 17:01 | disposition home or self-care (01) ==
LOC: ANHLAB 17:01
PROVIDERS: PCP Family Medicine; Visit Provider Physician Assistant Medical
DX: R53.1 Weakness (principal); R51.9 Headache, unspecified
CPT/HCPCS: 36415; 86644; 86645; 86664; 86665

== ENCOUNTER 2024-01-28 09:13 | Outpatient (CLI) | payer OTHER, SELFPAY ==
--- NOTE | ~2024-01-28 | CT_ITS ---
CT sinus wo con Ordering provider: Norman Pimentel NP History: . Chronic sinusitis, recurrent sinusitis . Comparison: MRI Technique: Thin slice Scans CT of the paranasal sinuses was performed with coronal and sagittal refor matted images. No IV contrast. . Automated exposure control and iterative reconstruction technique w ere employed. The dose-length product was 376.62 mGy-cm. Findings: NASAL SEPTUM: Very mild right nasal septal deviation. OSTEOMEATAL UNITS: Bilaterally patent. NASAL TURBINATES AND NASOPHARYNX: Normal. PARANASAL SINUSES: Well aerated. Minimal mucosal thickening in the right maxillary sinus. VISUALIZED MASTOIDS: Normal as visualized. BONES: Normal. SUPERFICIAL SOFT TISSUES/VISUALIZED BRAIN PARENCHYMA: Normal. IMPRESSION: Minimal mucosal thickening in the right maxillary sinus. Very mild right nasal septal deviation. Reviewed, dictated and finalized at location A.
== END 2024-01-28 09:14 ==
PROVIDERS: PCP Family Medicine
DX: J32.9 Chronic sinusitis, unspecified (principal)
CPT/HCPCS: 70486

== ENCOUNTER 2024-02-25 09:06 | Outpatient (CLI) | payer OTHER, SELFPAY | END 2024-02-25 09:07 | disposition home or self-care (01) | LOC: ANHAUDASC 09:07 | PROVIDERS: PCP Family Medicine; Visit Provider Otolaryngology | DX: H90.3 Sensorineural hearing loss, bilateral (principal); H93.19 Tinnitus, unspecified ear; H83.8X9 Other specified diseases of inner ear, unspecified ear | CPT/HCPCS: 92557; 92567 ==

== ENCOUNTER 2024-03-17 08:42 | Outpatient (CLI) | payer OTHER, SELFPAY ==
[2024-03-17 09:52] LABS: Chloride 98 mmol/L (98-107); Potassium 4.1 mmol/L (3.4-5.0); Sodium 133 mmol/L (137-145)
[2024-03-17 09:53] LABS: Anion Gap 8 mmol/L (4-12); Blood Urea Nitrogen 10 mg/dL (7-17); Calcium 9.1 mg/dL (8.4-10.2); Carbon Dioxide 27 mmol/L (22-30); Estimated Glomerular Filt Rate > 60; Glucose 86 mg/dL (65-110)
[2024-03-17 10:12] LABS: Vitamin D 25 Hydroxy 39.3 ng/mL
== END 2024-03-17 08:43 | disposition home or self-care (01) ==
PROVIDERS: PCP Family Medicine; Visit Provider Family Medicine
DX: E87.1 Hypo-osmolality and hyponatremia (principal); E55.9 Vitamin D deficiency, unspecified
CPT/HCPCS: 36415; 80048; 82306; 82533

== ENCOUNTER 2024-03-31 08:32 | Outpatient (CLI) | payer OTHER, SELFPAY ==
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
== END 2024-03-31 08:33 | disposition home or self-care (01) ==
LOC: ANHIMG 08:36
PROVIDERS: PCP Family Medicine; Visit Provider Physician Assistant Medical
DX: M16.12 Unilateral primary osteoarthritis, left hip (principal)
CPT/HCPCS: 73502

== ENCOUNTER 2024-07-01 11:08 | Outpatient (CLI) | payer OTHER, SELFPAY ==
--- NOTE | ~2024-07-01 | XR_ITS ---
EXAMINATION: XR chest 2V 07/01/2024 11:52 INDICATION: Cough PROCEDURE: 2 view chest COMPARISON: 09/19/2020 FINDINGS: The lungs are clear. The cardiomediastinal silhouette is within normal limits. There are no pleural effusions. There is no pneumothorax suspected. There are multiple healed left rib fractu res. IMPRESSION: 1: NO ACUTE CARDIOPULMONARY DISEASE. Reviewed, dictated and finalized at location B. L SOCIAL WORKER
== END 2024-07-01 11:09 | disposition home or self-care (01) ==
LOC: GOSHIMG 11:09
PROVIDERS: PCP Family Medicine; Visit Provider Family Medicine
DX: R05.9 Cough, unspecified (principal)
CPT/HCPCS: 71046

== ENCOUNTER 2024-07-09 12:17 | Outpatient (CLI) | payer OTHER, SELFPAY ==
[2024-07-09 13:12] LABS: Add Urine Microscopic? YES; Appearance Urine Cloudy (Clear); Bacteria Urine None Seen /hpf; Bilirubin Urine Negative (Negative); Blood Urine 1+ (Negative); Color Urine Dark Yellow (Yellow); Glucose Urine UA Negative (Negative); Ketones Urine Negative (Negative); Leukocyte Esterase Ur 3+ LEU/UL (Negative); Need Manual Microscopic Reviewed; Nitrate Urine Positive (Negative); Non Pathogenic Casts 0-2; Protein Urine 1+ mg/dL (Negative); RBC Urine 0-2 /hpf (0-2); Specific Grav Ur 1.006 (1.001-1.035); Squamous Epithelial Cell Urine None Seen /hpf (Few); WBC Urine >100 /hpf (0-3)
== END 2024-07-09 12:18 | disposition home or self-care (01) ==
LOC: ANHLAB 12:17
PROVIDERS: PCP Family Medicine; Visit Provider Family Medicine
DX: R30.0 Dysuria (principal)
CPT/HCPCS: 81001; 87086; 87186

== ENCOUNTER 2024-10-08 12:19 | Outpatient (CLI) | payer OTHER, SELFPAY ==
--- OUTSIDE RECORDS SUMMARY | 2024-10-08 12:23 | XMS_ITS | Clinical Summary ---
Author Organization [facility] Address [address] [place] [address] Phone Care Team Providers Care Brewmaster Name Role Phone Adolfo Vera MD Primary Care Provider [phone] Allergies Active Allergy Reactions Criticality Noted Date Comments Codeine Vomiting 04/08/2018 Codeine causes nausea and vomiting. Medications Multiple Vitamins-Mineral s (MULTIVITAMIN PO) Take 1 Tab by mouth daily. Active ASPIRIN EC LO-DOSE PO Take 81 mg by mouth as needed. Active calcium carbonate (TUMS) 500 MG Chewable Tablet Take 2 Tabs by mouth daily. Active omeprazole (PRILOSEC) 20 MG CAPSULE DELAYED RELEASE Take 2 Caps by mouth daily. 90 Cap 3 05/08/2018 Active Active Problems No known active problems Family History Medical History Relation Name Comments Alcohol Abuse Father Dementia Father Emphysema Mother Relation Name Status Comments Father Alive Mother Social History Tobacco Use Types Packs/Day Years Used Date Smoking Tobacco: Never Smokeless Tobacco: Never Alcohol Use Standard Drinks/Week Comments Yes 0 (1 standard drink = 0.6 oz pur e alcohol) 4 Comments Unknown Sex and Gender Information Value Date Recorded Sex Assigned at Not on file Legal Sex Female 12:23 AM CDT Gender Identity Not on file Sexual Orientation Not on file Last Filed Vital Signs Vital Sign Reading Time Taken Comments Blood Pressure 120/85 05/08/2018 10:31 AM CASHIERS SUPERVISOR Pulse 82 05/08/2018 10:31 AM CASHIERS SUPERVISOR Temperature 37 C (98.6 F) 05/08/2018 10:31 AM CASHIERS SUPERVISOR Respiratory Rate 11 05/08/2018 10:31 AM CASHIERS SUPERVISOR Oxygen Saturation 100% 05/08/2018 10:31 AM CASHIERS SUPERVISOR Inhaled Oxygen Concentration - - Weight 59 kg (130 lb) 05/08/2018 8:24 AM CASHIERS SUPERVISOR Height 152.4 cm (5') 05/08/2018 8:24 AM CASHIERS SUPERVISOR Body Mass Index 25.39 05/08/2018 8:24 AM CASHIERS SUPERVISOR Plan of Treatment Health Maintenance Due Date Last Done Comments Hepatitis C Virus (HCV) Screening 1965 TdaP Immunization 1965 Hepatitis B Immunization (1 of 3 - 19+ 3-dose series) 1985 Cologuard 2016 Immunochemical Fecal Occult Blood 2016 Pneumococcal Immunization (5 0+ years) (1 of 1 - PCV) 2016 Zoster Immunization (1 of 2) 2016 Influenza Immunization (#1) 2024 04/05/2016 SARS-COV-2 Immunization ( - season) 2024 Colonoscopy 07/03/2027 07/03/2020 Colorectal Cancer Screening 07/03/2027 Respiratory Syncytial Virus (RSV) Immunization (Adult) (1 - 1-dose 75+ series) 2041 07/03/2020 Meningococcal Immunization (ACWY) Aged Out No longer eligible based on patient's age to complete this topic Rotavirus Immunization Aged Out No lo nger eligible based on patient's age to complete this topic Procedures Procedure Name Priority Date/Time Associated Diagnosis Comments COLONOSCOPY Routine 07/03/2020 from Last 3 Months or Most Recently Relevant to Health Maintenance Results * COLONOSCOPY (07/03/2020) us Wellington Whitt DO PROCEDURE/MINOR SURGICAL ORDERA BLES Final Result from Last 3 Months or Most Recently Relevant to Health Maintenance Insurance [facility] Care Teams Brewmaster Relationship Specialty Start Date End Date Adolfo Vera MD 2 [facility] [address] [address] PCP - General Internal Medicine 05/08/18
--- OUTSIDE RECORDS SUMMARY | 2024-10-08 12:23 | XMS_ITS | Clinical Summary ---
Author Organization [facility] Address [address] [place] [address] Care Team Providers Care Truck Driver Supervisor Name Role Phone Telly Land MD Primary Care Provider Source Comments [facility],non-owned Affiliates and Associated Physician Practices is amultiple site organization consisting of ambulatory clinics and hospital sitesin [place], [place], [place] and [place]. This disclosure is being madepursuant to the Care Everywhere program and may not contain all information available regarding this patient. Last updated 18.[facility] Allergies Active Allergy Reactions Criticality Noted Date Comments Codeine Nausea and/or Vomiting 05/31/2022 Medications * Be aware that medications may not be up to date on this document. Alwaysverify current medications with the patient. traZODone (Desyrel) 50 MG tablet Take 1 (one) tablet by mouth at bedtime Active Estradiol-Proge sterone (BIJUVA PO) Active Multiple Vitamins-Minera ls (CENTRUM SILVER 50+WOMEN PO) Active pseudoephedrine (Sudafed) 60 MG tablet Take 1 (one) tablet by mouth every 4 hours as needed for Nasal Congestion Active fluticasone propionate (Flonase) 50 MCG/ACT nasal spray [place] 2 (two) sprays into each nostril once daily Active Social History Tobacco Use Types Packs/Day Years Used Date Smoking Tobacco: Never Smokeless Tobacco: Never Tobacco Cessation:Counseling Given: Not Answered Alcohol Use Standard Drinks/Week Comments Yes 0 (1 standard drink = 0.6 oz pur e alcohol) occasional Comments No Sex and Gender Information Value Date Recorded Sex Assigned at Not on file Legal Sex Female 1:26 PM COMPUTER NETWORKING INSTRUCTOR ADJUNCT Gender Identity Not on file Sexual Orientation Not on file Last Filed Vital Signs Vital Sign Reading Time Taken Comments Blood Pressure 110/73 06/07/2022 6:30 PM COMPUTER NETWORKING INSTRUCTOR ADJUNCT Pulse 74 06/07/2022 6:30 PM COMPUTER NETWORKING INSTRUCTOR ADJUNCT Temperature 36.5 C (97.7 F) 06/07/2022 5:28 PM COMPUTER NETWORKING INSTRUCTOR ADJUNCT Respiratory Rate 16 06/07/2022 6:30 PM COMPUTER NETWORKING INSTRUCTOR ADJUNCT Oxygen Saturation 100% 06/07/2022 6:30 PM COMPUTER NETWORKING INSTRUCTOR ADJUNCT Inhaled Oxygen Concentration - - Weight 55.8 kg (123 lb) 06/07/2022 10:43 AM COMPUTER NETWORKING INSTRUCTOR ADJUNCT Height 152.4 cm (5') 06/07/2022 10:43 AM COMPUTER NETWORKING INSTRUCTOR ADJUNCT Body Mass Index 24.02 06/07/2022 10:43 AM COMPUTER NETWORKING INSTRUCTOR ADJUNCT Plan of Treatment Health Maintenance Due Date Last Done Comments COLOGUARD (AGES 45-75) - COLON CA SCREENING 1966 COLON MONITORING 1966 COLONOSCOPY - COLON CA SCREENING 1966 CT COLONOGRAPHY - COLON CA SCREENING 1966 Colorectal Cancer Screening 1966 FIT - COLON CA SCREENING 1966 FLEX SIG - COLON CA SCREENING 1966 LIPID TESTING 1966 MAMMOGRAM 1966 PAP SMEAR 1966 HIV SCREENING 1981 HEPATITIS C SCREENING 07/13/1984 DTAP/TDAP/TD VACCINES (1 - Tdap) 1985 HEPATITIS B VACCINE (1 of 3 - 19+ 3-dose series) 1985 PNEUMOCOCCAL VACCINE 50+ (1 of 1 - PCV) 2016 ZOSTER VACCINE (1 of 2) 2016 COVID-19 VACCINE (1 - season) 2024 DEPRESSION SCREENING 06/23/2024 INFLUENZA VACCINE (Season Ended) 2025 04/16/2022, 05/22/2020, 04/22/2019, Additional history exists HIB VACCINE Aged Out No longer eligi ble based on patient's age to complete this topic HPV VACCINE Aged Out No longer eligi ble based on patient's age to complete this topic MENINGOCOCCAL (Group B) VACCINE SHARED DECISION-MAKING Aged Out No longer eligible based on patient's age to complete this topic MENINGOCOCCAL GROUPS A/C/Y/W VACCINE Aged Out No longer eligible based on patient's age to complete this topic Insurance [employer] Member Subscriber Plan / Payer (Ef fective 2020-Present) Name:Zeeshan Queen Member ID:[id number] Relation to Subscriber:Self Name:KEVIN QUEEN Subscriber ID:[id number] Payer ID:Not on file Type:O Address: [place] [phone] Pay * Guarantor: ZEESHAN QUEEN Account Type Relation to Patient Date of Phone Billing Address Personal/Family 1965 [address] [place] [id number] [employer] Care Teams Truck Driver Supervisor Relationship Specialty Start Date End Date Telly Land MD [address] [place] [address] PCP - General Family Medicine 06/07/22
--- OUTSIDE RECORDS SUMMARY | 2024-10-08 12:24 | XMS_ITS | Encounter Summary ---
Author Organization [facility] Address [address] [place] [address] Phone Care Team Providers Care Mash Filter Press Operator Name Role Phone Adolfo Vera MD Primary Care Provider [phone] Telly Land MD Primary Care Provider [phone] Radha Milton UNDERGROUND HEAVY EQUIPMENT OPERATOR Unavailable [phone] No, Physician Primary Care Provider [phone] Abram Burns MD Primary Care Provider [phone] Encounter Details Date Type Department Care Team (Late st Contact Info) Description 08/21/2017 Orders Only [facility] ProviderBranden MD [address] [place] [address] Social History Tobacco Use Types Packs/Day Years Used Date Smoking Tobacco: Never Smokeless Tobacco: Never Alcohol Use Standard Drinks/Week Comments Yes 0 (1 standard drink = 0.6 oz pur e alcohol) occasionally Comments No Sex and Gender Information Value Date Recorded Sex Assigned at Not on file Legal Sex Female 5:11 PM CREDIT RISK REVIEW OFFICER Gender Identity Female 03/14/2021 8:24 PM CDT Sexual Orientation Straight 02/24/2020 3: 06 PM CDT documented as of this encounter Plan of Treatment Not on file documented as of this encounter Procedures Procedure Name Priority Date/Time Associated Diagnosis Comments DISCHARGE LABORATORY CUMULATIVE REPORT 08/21/2017 12:00 AM CREDIT RISK REVIEW OFFICER documented in this encounter Results * DISCHARGE LABORATORY CUMULATIVE REPORT (08/21/2017 12:00 AM CREDIT RISK REVIEW OFFICER) Narrative 08/21/2017 12:00 AM CREDIT RISK REVIEW OFFICER Ordered by an unspecified provider. us Historical Provider LAB BLOOD ORDERABLES Bruna l Result documented in this encounter Visit Diagnoses Not on filedocumented in this encounter Additional Health Concerns Infection Onset Date Last Indicated Resolved Time COVID: Suspected 07/11/2022 07/11/2022 07/11/2022 11:42 AM CREDIT RISK REVIEW OFFICER documented as of this encounter Care Teams Mash Filter Press Operator Relationship Specialty Start Date End Date Adolfo Vera MD PCP - General 09/20/16 10/01/21 Telly Land MD [address] [place] [address] PCP - General Family Medicine 10/02/21 02/09/23 No, Physician PCP - General 02/10/23 04/15/23 Abram Burns MD PCP - General Family Medicine 04/16/23 Radha Milton UNDERGROUND HEAVY EQUIPMENT OPERATOR [address] [place] [address] [address] Nurse Practitioner Obstetrics and Gynecology 10/03/21 documented as of this encounter
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
--- OUTSIDE RECORDS SUMMARY | 2024-10-08 12:24 | XMS_ITS | Referral Summary ---
Author Organization [facility] Address [address] [place] [address] Care Team Providers Care Fiberglass Quality Technician Name Role Phone Radha Milton METAL CLEANER Unavailable [phone] Abram Burns MD Primary Care Provider + [phone] Encounters Date Type Department Care Team Description 08/31/2024 2:30 PM CDT Office Visit [facility] Dermatology [address] [facility] [address] [place] [address] Fausto Fernandez MD Inflamed seborrheic keratosis (Primary Dx); Hypertrophic scar; Dermatofibroma; History of nonmelanoma skin cancer 07/13/2024 9:30 AM FOREMAN/PILE DRIVING AND ERECTION Office Visit [address] [place] [address] José Miguel Lieberman MD Well woman exam (Primary Dx); Encounter for screening mammogram for malignant neoplasm of breast from Last 3 Months Allergies Active Allergy Reactions Criticality Noted Date [...] spasms 30 tablet 06/13/20 22 Active multivitamin,tx- copy-Rc-LM-min 27-0.4 mg tablet Take by mouth Active [...] excision procedure (L EEP) 07/13/2024 Overview (07/13/2024): 1996 Chronic maxillary sinusitis 11/14/2021 Encounter for medical [...] we may need to undertake referral to store coordinator. Respiratory allergy test screen has been ordered [...] 04/15/2019 Assessment & Plan (05/27/2019 4:57 PM FOREMAN/PILE DRIVING AND ERECTION): Pepcid 40 mg at bedtime May continue Nasal saline as needed May stop Flonase May hold off on the Zyrte until the Spring Call if no improvement [...] ED at 13.1/36.2. Recommended EGD, consultation Dr. dagoberto donovan close monitoring outpatient dietary and lifestyle modifications for educate the patient. Nexium twice daily for 2 weeks tapering down once daily thereafter. She is going to [place], so I did advise her to seek [...] 02/20/2018 Assessment & Plan (08/21/2017 12:10 PM FOREMAN/PILE DRIVING AND ERECTION): Increasing fluid intake was recommended. Patient was [...] neck 03/13/2016 02/20/2018 Neoplastic disease 02/26/2016 8 Immunizations Immunization Administration Dates Next Due Influenza, Quadrivalent, Spl it, Intramuscular 04/05/2016 Influenza, Quadrivalent, Spl it, Preservative Free, Intramuscular 04/16/2022,05/22/2020,03/29/2015 Influenza, Trivalent, IM (MDV) 04/01/2014,2013 Influenza, Unspecified 04/22/2019,2018(Deferred: Patient Refused),02/25/2019(Deferred: Patient Refused),03/20/2018,04/04/2017 Tdap 10/11/2009 ZOSTER Recombinant 05/22/2020,01/15/2019 Social History Tobacco Use Types Packs/Day Years [...] on file Legal Sex Female 5:11 PM FOREMAN/PILE DRIVING AND ERECTION Gender Identity Female 03/14/2021 8:24 PM CDT Sexual Orientation Straight 02/24/2020 3: 06 PM CDT 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 Not on file Not on file Last Filed Vital Signs Vital Sign Reading Time Taken Comments Blood Pressure 120/80 07/13/2024 9:11 AM FOREMAN/PILE DRIVING [employer] ERECTION Pulse 76 02/10/2023 3:23 PM CDT Temperature 36.9 C (98.4 F) 07/11/2022 11:13 AM FOREMAN/PILE DRIVING AND ERECTION Respiratory Rate 18 07/11/2022 11:13 AM FOREMAN/PILE DRIVING AND ERECTION Oxygen Saturation 99% 09/12/2022 9:28 AM CDT Inhaled Oxygen Concentration - - Weight 61.7 kg (136 lb) 07/13/2024 9:11 AM FOREMAN/PILE DRIVING AND ERECTION Height 152.4 cm (5') 02/10/2023 3:23 PM CDT Body Mass Index 26.56 02/10/2023 3:23 PM CDT Plan of Treatment Not on file Procedures Procedure Name Priority Date/Time Associated Diagnosis Comments PAP AND HPV, REFLEX TO HPV GENOTYPES Routine 07/13/2024 10:03 AM FOREMAN/PILE DRIVING AND ERECTION Well woman exam SCREENING MAMMOGRAM BILATERAL W STEVE Schedule Routine, Read Routine (OP Routine) 04/24/2023 7:47 AM CDT Encounter for breast cancer screening using non-mammogram modality HM COLONOSCOPY Routine 07/03/2020 from Last 3 Months or Most Recently Relevant to Health Maintenance Results * Pap and HPV, reflex to HPV Genotypes (07/13/2024 10:03 AM FOREMAN/PILE DRIVING AND ERECTION) CLINICAL INFORMATION: [facility] Comment:Routine exam LMP [facility] Comment:POST MENOPAUSAL Previous Pap [facility] [employer] [facility] Comment:NONE GIVEN Prev. Bx [facility] [employer] [facility] Comment:NONE GIVEN SOURCE: [employer] [facility] Comment:Cervix, Endocervix Pap, specimen adequacy [facility] Comment: Satisfactory for evaluation. Endocervical/transformation zone component present. HPV interp [facility] [employer] [facility] Comment: Cytology Results: Negative for intraepithelial lesion or malignancy. COMMENTS [facility] [employer] [facility] Comment: This Pap test has been evaluated with computer assisted technology. Telephone Advice Nurse [facility] Comment: BKA, CT(ASCP) CT screening location: [place] [address] [place] [address] Comment [facility] [employer] [facility] Comment: EXPLANATORY NOTE: The Pap is [...] High Risk E6/E7 Not Detected NOT DETECTED [facility] Comment: Not Detected High Risk HPV types (16,18,31,33,35,39,45,51,52, 56,58,59,66,68) were not detected. Other HPV types which cause anogenital lesions may be present. The significance of the other types of HPV in malignant processes has not been established. Methodology: Real Time PCR Thin prep-Endocervica l 07/13/2024 10:03 AM FOREMAN/PILE DRIVING AND ERECTION 07/14/2024 2:51 AM FOREMAN/PILE DRIVING AND ERECTION us José Miguel Lieberman MD LAB CYTOLOGY ORDERABLES nal Result [facility] [address] [place] [address] [address] * Screening Mammogram Bilateral W Steve (04/24/2023 [...] in either breast on mammogram. Anneliese Martinez NP IMG MAMMO PROCEDURES Final Result * COLONOSCOPY (07/03/2020) Historical Provider MD HEALTH MAINTENANCE Final Result from Last 3 Months or Most Recently Relevant to Health Maintenance Insurance The Grounds Keeper [facility] [address] [place] [address] [place] [id number] [facility] [address] Care Teams Fiberglass Quality Technician Relationship Specialty Start Date End Date Abram Burns MD [address] [place] [address] DR CASH Izagu[address]re SHANEL [address] [place] [address] PCP - General Family Medicine 04/16/23 Radha Milton NP [address] [place] [address] DR CASH Iz[address] SHANEL [address] [place] [address] Nurse Practitioner Obstetrics and Gynecology 10/03/21
== END 2024-10-08 12:20 | disposition home or self-care (01) ==
LOC: ANHLAB 12:20
PROVIDERS: PCP Family Medicine; Visit Provider Nurse Practitioner Adult Health
DX: R05.2 Subacute cough (principal)
CPT/HCPCS: 87070; 87205

== ENCOUNTER 2024-10-09 08:50 | Outpatient (NON) | payer OTHER, SELFPAY ==
--- OUTSIDE RECORDS SUMMARY | 2024-10-09 08:53 | XMS_ITS | Referral Summary ---
Author Organization [facility] Address [address] [place] [address] Care Team Providers Care Industrial Designer Name Role Phone Radha Miltno FARMWORKER FIELD CROP Unavailable [phone] Abram Burns MD Primary Care Provider + [phone] Encounters Date Type Department Care Team Description 08/31/2024 2:30 PM CDT Office Visit [facility] Dermatology [address] [facility] [address] [place] [address] Fausto Fernandez MD Inflamed seborrheic keratosis (Primary Dx); Hypertrophic scar; Dermatofibroma; History of nonmelanoma skin cancer 07/13/2024 9:30 AM DIRECTOR OF NEUROLOGY Office Visit [address] [place] [address] José Miguel Lieberman MD Well woman [...] spasms 30 tablet 06/13/20 22 Active multivitamin,tx- yoyw-Ce-JP-min 27-0.4 mg tablet Take by mouth Active [...] we may need to undertake referral to time analysis clerk. Respiratory allergy test screen has been ordered [...] 04/15/2019 Assessment & Plan (05/27/2019 4:57 PM DIRECTOR OF NEUROLOGY): Pepcid 40 mg at bedtime May continue [...] once daily thereafter. She is going to [place], so I did advise her to seek [...] 02/20/2018 Assessment & Plan (08/21/2017 12:10 PM DIRECTOR OF NEUROLOGY): Increasing fluid intake was recommended. 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 Not on file Not on file Last Filed Vital Signs Vital Sign Reading Time Taken Comments Blood Pressure 120/80 07/13/2024 9:11 AM DIRECTOR OF NEUROLOGY Pulse 76 02/10/2023 3:23 PM CDT Temperature 36.9 C (98.4 F) 07/11/2022 11:13 AM DIRECTOR OF NEUROLOGY Respiratory Rate 18 07/11/2022 11:13 AM DIRECTOR OF NEUROLOGY Oxygen Saturation 99% 09/12/2022 9:28 AM CDT Inhaled Oxygen Concentration - - Weight 61.7 kg (136 lb) 07/13/2024 9:11 AM DIRECTOR OF NEUROLOGY Height 152.4 cm (5') 02/10/2023 3:23 PM CDT Body Mass Index 26.56 02/10/2023 3:23 PM CDT Plan of Treatment Not on file Procedures Procedure Name Priority Date/Time Associated Diagnosis Comments PAP AND HPV, REFLEX TO HPV GENOTYPES Routine 07/13/2024 10:03 AM DIRECTOR OF NEUROLOGY Well woman exam SCREENING MAMMOGRAM BILATERAL W STEVE Schedule Routine, Read Routine (OP Routine) 04/24/2023 7:47 AM CDT Encounter for breast cancer screening using non-mammogram modality HM COLONOSCOPY Routine 07/03/2020 from Last 3 Months or Most Recently Relevant to Health Maintenance Results * Pap and HPV, reflex to HPV Genotypes (07/13/2024 10:03 AM DIRECTOR OF NEUROLOGY) CLINICAL INFORMATION: [facility] Comment:Routine exam LMP [facility] Comment:POST MENOPAUSAL Previous Pap [facility] [employer] [facility] Comment:NONE GIVEN Prev. Bx [facility] [employer] [facility] Comment:NONE GIVEN SOURCE: [employer] [facility] Comment:Cervix, Endocervix Pap, specimen adequacy [facility] Comment: Satisfactory for evaluation. Endocervical/transformation zone component present. HPV interp [facility] [employer] [facility] Comment: Cytology Results: Negative for intraepithelial lesion or malignancy. COMMENTS [facility] [employer] [facility] Comment: This Pap test has been evaluated with computer assisted technology. Procurement Agent [facility] Comment: BKA, CT(ASCP) CT screening location: [place] [address] [place] [address] Comment [facility] [employer] [facility] Comment: EXPLANATORY NOTE: The Pap [...] High Risk E6/E7 Not Detected NOT DETECTED [facility] Comment: Not Detected High Risk HPV types (16,18,31,33,35,39,45,51,52, 56,58,59,66,68) were not detected. Other HPV types which cause anogenital lesions may be present. The significance of the other types of HPV in malignant processes has not been established. Methodology: Real Time PCR Thin prep-Endocervica l 07/13/2024 10:03 AM DIRECTOR OF NEUROLOGY 07/14/2024 2:51 AM DIRECTOR OF NEUROLOGY us José Miguel Lieberman MD LAB CYTOLOGY ORDERABLES nal Result [facility] [address] [place] [address] [address] * Screening Mammogram Bilateral W Steve (04/24/2023 [...] Most Recently Relevant to Health Maintenance Insurance [employer] [facility] [place] [address] [place] [address] [facility] [id number] Care Teams Industrial Designer Relationship Specialty Start Date End Date Abram Burns MD [address] [place] [address] DR CASH Izaguirre SHANEL [address] [place] [address] PCP - General Family Medicine 04/16/23 Radha Milton NP [address] [place] [address] DR CASH Izaguirre SHANEL [address] [place] [address] Nurse Practitioner Obstetrics and Gynecology 10/03/21
--- OUTSIDE RECORDS SUMMARY | 2024-10-09 08:53 | XMS_ITS | Continuity of Care Document ---
Author Organization [facility] Address [address] [place] [address] [address] [place] [address] Phone Care Team Providers Care Accelerator Technician Name Role Phone Huang PT,MPT,ATC, Alphonso Unavailable Unavai lable Procedures Procedure Date Therapeutic Activities Neuromuscular Re-Ed Manual Therapy Therapeutic Activities Neuromuscular Re-Ed Manual Therapy Therapeutic Activities Neuromuscular Re-Ed Manual Therapy Therapeutic Activities Neuromuscular Re-Ed Manual Therapy PT Evaluation Moderate Complexity Therapeutic Activities Manual Therapy Therapeutic Activities Manual Therapy Therapeutic Activities Manual Therapy Therapeutic Activities Manual Therapy PT Evaluation Moderate Complexity Therapeutic Activities Neuromuscular Re-Ed Therapeutic Activities Neuromuscular Re-Ed Therapeutic Exercise Therapeutic Activities Neuromuscular Re-Ed Therapeutic Exercise Progress Note Therapeutic Exercise Manual Therapy Neuromuscular Re-Ed Therapeutic Exercise Neuromuscular Re-Ed Therapeutic Exercise Therapeutic Exercise Neuromuscular Re-Ed Neuromuscular Re-Ed Hot or Cold Pack Manual Therapy Therapeutic Exercise Neuromuscular Re-Ed Therapeutic Exercise Hot or Cold Pack Neuromuscular Re-Ed Therapeutic Activities Therapeutic Exercise Therapeutic Activities Therapeutic Exercise Neuromuscular Re-Ed Neuromuscular Re-Ed Therapeutic Activities Therapeutic Exercise PT Evaluation Moderate Complexity Neuromuscular Re-Ed Therapeutic Activities Advance Directives Directive Yes / No Effective Date File Name No Information Encounters Encounter Description Practice Location Reason(s) For Visit Diagnoses Date Provider Providers Copied on Encounter [facility] [employer] [employer] [address] [place] [address], [id number], tel:[phone] [place] No Information 5 Huang [place], [place]. Referring Provider: Abram Burns, [place], [address]. tel:[phone] [address] [place] [address] [address] [employer] [address] [place] [address], [id number], tel:[phone] [place] No Information 5 Huang [place], [place]. Referring Provider: Abram Burns, [address] [place], [address]. tel:[phone] [place], [place] [address] [employer] [address] [place] [address], [id number], tel:[phone] [place] No Information 5 Huang [place], [place]. Referring Provider: Abram Burns, [address] [employer], [place], [address]. tel:[phone] [place] [address] [place], [place] [address], [place], [place], [id number], [place] tel:[phone] [place] No Information 5 Encinas [place]. , [place], [place]. Referring Provider: Abram Burns, [address] [facility] [place] [place], [address]. tel:[phone] [place] [address], [address] [place], [place] [address], [place], [place], [id number], [place] tel:[phone] [place] No Information 5 Huang Werner. , [place], [place]. Referring Provider: Abram Burns, [address] [employer], [place], [address]. tel:[phone] [place] [address] [place] [address], [place], [place], [id number], [place] tel:[phone] [place] No Information 4 Huang Werner. , [place], [place]. Referring Provider: Roxy Potts [address], [place], [address]. tel:[phone] [place] [address], [address] [facility], [place], [place], [id number], [place] tel:[phone] [place] No Information 0 4 Huang Werner. , [place], [place]. Referring Provider: Roxy Potts, [address], [place], [address]. tel:[phone] [place] [address] [address] [facility], [place], [place], [id number], [place] tel:[phone] [place] No Information 0 4 Huang Werner. , [place], [place]. Referring Provider: Roxy Potts [address], [place], [address]. tel:[phone] [place] [address] [facility], [id number], [place] tel:[phone] [place] No Information 4 [place], [place], [place]. Referring Provider: Roxy Potts, [address], [place], [address]. tel:[phone] [place] [address], [address] [place] [address], [id number], [place] tel:[phone] [place] No Information 2 2 Klahn [place]. . Referring Provider: Telly Morse, [address] [place] [address], [address]. tel:[phone] [place] [address], [id number], [place] tel:[phone] [place] No Information 0 2 Klahn [place]. . Referring Provider: Telly Morse, [address] [place] [address], [address]. tel:[phone] [place] [address], [address] [place] [address], [id number], [place] tel:[phone] [place] No Information 2 Klahn [place]. . Referring Provider: Telly Morse, [address] [place] [address], [address]. tel:[phone] [place] [address], [address] [place] [address], [id number], [place] tel:[phone] [place] No Information 2 Klahn [place]. . Referring Provider: Telly Morse, [address] [place] [address], [address]. tel:[phone] [place] [address], [address] [place] [address], [id number], [place] tel:[phone] [place] No Information 0 2 Klahn [place]. . Referring Provider: Telly Morse, [address] [place] [address], [address]. tel:[phone] [place] [address], [address] [place] [address], [place], [place], [id number], [place] tel:[phone] [place] No Information Sep-2 2 Klahn [place]. . Referring Provider: Telly Morse, [address] [place] [address], [address]. tel:[phone] [place] [address], [address] [place] [address], [place], [place], [id number], [place] tel:[phone] [place] No Information Sep-2 2 Klahn [place]. . Referring Provider: Telly Morse, [address] [place] [address], [address]. tel:[phone] [place] [address], [address] [place] [address], [place], [place], [id number], [place] tel:[phone] [place] No Information Sep-0 2 Klahn [place]. . Referring Provider: Telly Morse, [address] [place] [address], [address]. tel:[phone] [place] [address], [address] [place] [address], [id number], [place] tel:[phone] [place] No Information Jan- 2 Klahn [place]. . Referring Provider: Telly Morse, [address] [place] [address], [address]. tel:[phone] [place] [address], [facility] [place] [address], [place], [place], [id number], [place] tel:[phone] [place] No Information Jan- 2 Klahn [place]. . Referring Provider: Telly Morse, [address] [place] [address], [address]. tel:[phone] [place] [address], [facility], [place], [place], [id number], [place] tel:[phone] [place] No Information Jan- 2 Klahn [place]. . Referring Provider: Telly Morse, [address] [place] [address], [place], [address]. tel:[phone] [facility] [place], [address] [place] [address], [place], [place], [id number], tel:[phone] [place] No Information 2 Fran [place]. . Referring Provider: Telly Morse, [address] [place] [address], [place], [address]. tel:[phone] Family History Family Member Type Diagnosis Age At Onset No Information Payers Payer name Insurance type Covered democrat ID Vel dean(s) [id number] [id number] Social History Type Description Quantity Date Captured Comments Sex Female Smoking Status No Information Chief Complaint And Reason For Visit No Information Reason For Referral Reason For Referral No Information History Of Present Illness Encounter Date Complaint History Of Prese nt Illness No Information Functional Status Date Functional Assessmen t No Information Instructions Date Instruction Additional Infor mation No Information Assessments Type Assessment Date No Information Patient Care Teams Name Effective Dates (start - stop) Status Members No Information
--- OUTSIDE RECORDS SUMMARY | 2024-10-09 08:53 | XMS_ITS | Clinical Summary ---
Author Organization [facility] Address [address] [place] [address] Care Team Providers Care Line Production Cook Name Role Phone Telly Land MD Primary Care Provider [phone] Source Comments [facility],non-owned Affiliates and Associated Physician Practices is amultiple site organization consisting of ambulatory clinics and hospital sitesin [place], [place], [place] and [place]. This disclosure is being madepursuant to the Care Everywhere program and may not contain all information available regarding this patient. Last updated 18.[facility] Allergies Active Allergy Reactions Criticality Noted Date [...] fluticasone propionate (Flonase) 50 MCG/ACT nasal spray [place] 2 (two) sprays into each nostril once [...] on file Legal Sex Female 1:26 PM BOOKBINDER APPRENTICE Gender Identity Not on file Sexual Orientation Not on file Last Filed Vital Signs Vital Sign Reading Time Taken Comments Blood Pressure 110/73 06/07/2022 6:30 PM BOOKBINDER APPRENTICE Pulse 74 06/07/2022 6:30 PM BOOKBINDER APPRENTICE Temperature 36.5 C (97.7 F) 06/07/2022 5:28 PM BOOKBINDER APPRENTICE Respiratory Rate 16 06/07/2022 6:30 PM BOOKBINDER APPRENTICE Oxygen Saturation 100% 06/07/2022 6:30 PM BOOKBINDER APPRENTICE Inhaled Oxygen Concentration - - Weight 55.8 kg (123 lb) 06/07/2022 10:43 AM BOOKBINDER APPRENTICE Height 152.4 cm (5') 06/07/2022 10:43 AM BOOKBINDER APPRENTICE Body Mass Index 24.02 06/07/2022 10:43 AM BOOKBINDER APPRENTICE Plan of Treatment Health Maintenance Due Date [...] Payer (Ef fective 2020-Present) Name:Zeeshan Queen Member ID:[id number] Relation to Subscriber:Self Name:KEVIN QUEEN Subscriber ID:[id number] Payer ID:Not on file Type:O Address: [place] [id number] Pay * Guarantor: ZEESHAN QUEEN Account Type Relation to Patient Date of Phone Billing Address Personal/Family 1965 [address] [place] [id number] [employer] Care Teams Line Production Cook Relationship Specialty Start Date End Date Telly Land MD [address] [place] [address] PCP - General Family Medicine 06/07/22
--- OUTSIDE RECORDS SUMMARY | 2024-10-09 08:53 | XMS_ITS | Clinical Summary ---
Author Organization [facility] Address [address] [place] [address] Phone Care Team Providers Care Facetor Name Role Phone Adolfo Vera MD Primary Care Provider [phone] Allergies Active Allergy Reactions Criticality Noted Date [...] Comments Blood Pressure 120/85 05/08/2018 10:31 AM TANK SHOP SUPERVISOR Pulse 82 05/08/2018 10:31 AM TANK SHOP SUPERVISOR Temperature 37 C (98.6 F) 05/08/2018 10:31 AM TANK SHOP SUPERVISOR Respiratory Rate 11 05/08/2018 10:31 AM TANK SHOP SUPERVISOR Oxygen Saturation 100% 05/08/2018 10:31 AM TANK SHOP SUPERVISOR Inhaled Oxygen Concentration - - Weight 59 kg (130 lb) 05/08/2018 8:24 AM TANK SHOP SUPERVISOR Height 152.4 cm (5') 05/08/2018 8:24 AM TANK SHOP SUPERVISOR Body Mass Index 25.39 05/08/2018 8:24 AM TANK SHOP SUPERVISOR Plan of Treatment Health Maintenance Due [...] Most Recently Relevant to Health Maintenance Insurance [facility] OAP Care Teams Facetor Relationship Specialty Start Date End Date Adolfo Vera MD [address] [facility] [address] [address] PCP - General Internal Medicine 05/08/18
--- OUTSIDE RECORDS SUMMARY | 2024-10-09 08:53 | XMS_ITS | Clinical Summary ---
Author Organization [facility] Address [address] [place] [address] Care Team Providers Care Odd Jobs Day Worker Name Role Phone Radha Milton LEAD MANUFACTURING ENGINEERING TECH Unavailable [phone] Abram Burns MD Primary Care Provider [phone] Allergies Active Allergy Reactions Criticality Noted Date [...] spasms 30 tablet 06/13/20 22 Active multivitamin,tx- bopt-Gu-VM-min 27-0.4 mg tablet Take by mouth Active [...] we may need to undertake referral to ekg monitor. Respiratory allergy test screen has been ordered [...] 04/15/2019 Assessment & Plan (05/27/2019 4:57 PM SLP): Pepcid 40 mg at bedtime May continue Nasal saline as needed May stop Flonase May hold off on the [facility] until the Spring Call if no improvement [...] once daily thereafter. She is going to [place], so I did advise her to seek [...] 02/20/2018 Assessment & Plan (08/21/2017 12:10 PM SLP): Increasing fluid intake was recommended. Patient was [...] Description 08/31/2024 2:30 PM CDT Office Visit [facility] [address] [place] [address] Fausto Fernandez MD Inflamed seborrheic keratosis (Primary Dx); Hypertrophic scar; Dermatofibroma; History of nonmelanoma skin cancer 07/13/2024 9:30 AM SLP Office Visit [address] [place] [phone] José Miguel Lieberman MD Well woman [...] Headache, migra ine Anemia Anemia; Comments : [facility] 09/23/2016 - Hx Other Medical stomach, bowel, or gallbladder problems; Comments: [facility] 09/23/2016 - Hx Other Medical female problems ; Comments: [facility] 09/23/2016 - Rosacea Insomnia Family History [...] on file Legal Sex Female 5:11 PM SLP Gender Identity Female 03/14/2021 8:24 PM CDT [...] Comments Blood Pressure 120/80 07/13/2024 9:11 AM SLP Pulse 76 02/10/2023 3:23 PM CDT Temperature 36.9 C (98.4 F) 07/11/2022 11:13 AM SLP Respiratory Rate 18 07/11/2022 11:13 AM SLP Oxygen Saturation 99% 09/12/2022 9:28 AM CDT Inhaled Oxygen Concentration - - Weight 61.7 kg (136 lb) 07/13/2024 9:11 AM SLP Height 152.4 cm (5') 02/10/2023 3:23 PM [...] TO HPV GENOTYPES Routine 07/13/2024 10:03 AM SLP Well woman exam SCREENING MAMMOGRAM BILATERAL W STEVE Schedule Routine, Read Routine (OP Routine) 04/24/2023 7:47 AM CDT Encounter for breast cancer screening using non-mammogram modality HM COLONOSCOPY Routine 07/03/2020 from Last 3 Months or Most Recently Relevant to Health Maintenance Results * Pap and HPV, reflex to HPV Genotypes (07/13/2024 10:03 AM SLP) CLINICAL INFORMATION: [facility] Comment:Routine exam LMP [facility] Comment:POST MENOPAUSAL Previous Pap [facility] Comment:NONE GIVEN Prev. Bx [facility] Comment:NONE GIVEN SOURCE: [facility] Comment:Cervix, Endocervix Pap, specimen adequacy [facility] Comment: Satisfactory for evaluation. Endocervical/transformation zone component present. HPV interp [facility] Comment: Cytology Results: Negative for intraepithelial lesion or malignancy. COMMENTS [facility] Comment: This Pap test has been evaluated with computer assisted technology. Chemistry Research Assistant [facility] Comment: BKA, CT(ASCP) CT screening location: [place] [address] [place] [address] [facility] Comment: EXPLANATORY NOTE: The Pap is a [...] High Risk E6/E7 Not Detected NOT DETECTED [facility] Comment: Not Detected High Risk HPV types (16,18,31,33,35,39,45,51,52, 56,58,59,66,68) were not detected. Other HPV types which cause anogenital lesions may be present. The significance of the other types of HPV in malignant processes has not been established. Methodology: Real Time PCR Thin prep-Endocervica l 07/13/2024 10:03 AM SLP 07/14/2024 2:51 AM SLP José Miguel Lieberman MD LAB CYTOLOGY ORDERABLES Fi nal Result [facility] [address] [place] [address] [facility] [address] [place] [address] * Screening Mammogram Bilateral W Steve (04/24/2023 [...] in either breast on mammogram. Anneliese Martinez LEAD MANUFACTURING ENGINEERING TECH IMG MAMMO PROCEDURES Final Result * HM COLONOSCOPY (07/03/2020) Branden Provider HEALTH MAINTENANCE Final Result from Last 3 Months or Most Recently Relevant to Health Maintenance Insurance [facility] [facility] [id number] [facility] [id number] Care Teams Odd Jobs Day Worker Relationship Specialty Start Date End Date Abram Burns MD [address] [place] [address] [address] [place] [address] PCP - General Family Medicine 04/16/23 Radha Milton NP [address] [place] [address] [address] [place] [address] Nurse Practitioner Obstetrics and Gynecology 10/03/21
--- OUTSIDE RECORDS SUMMARY | 2024-10-09 08:53 | XMS_ITS | Encounter Summary ---
Author Organization [facility] Address [address] [place] [address] Phone Care Team Providers Care Book Cutter Name Role Phone Adolfo Vera MD Primary Care Provider [phone] Telly Land MD Primary Care Provider [phone] Radha Milton WORK DISTRIBUTOR Unavailable [phone] No, Physician Primary Care Provider [phone] Abram Burns MD Primary Care Provider [phone] Encounter Details Date Type Department Care Team (Late st Contact Info) Description 08/21/2017 Orders Only [facility] ProviderBranden MD [address] [place] [address] Social History Tobacco Use Types Packs/Day Years Used Date Smoking Tobacco: Never Smokeless Tobacco: Never Alcohol Use Standard Drinks/Week Comments Yes 0 (1 standard drink = 0.6 oz pur e alcohol) occasionally Comments No Sex and Gender Information Value Date Recorded Sex Assigned at Not on file Legal Sex Female 5:11 PM VEHICLE AND EQUIPMENT CLEANER Gender Identity Female 03/14/2021 8:24 PM CDT Sexual Orientation Straight 02/24/2020 3: 06 PM CDT documented as of this encounter Plan of Treatment Not on file documented as of this encounter Procedures Procedure Name Priority Date/Time Associated Diagnosis Comments DISCHARGE LABORATORY CUMULATIVE REPORT 08/21/2017 12:00 AM VEHICLE AND EQUIPMENT CLEANER documented in this encounter Results * DISCHARGE LABORATORY CUMULATIVE REPORT (08/21/2017 12:00 AM VEHICLE AND EQUIPMENT CLEANER) Narrative 08/21/2017 12:00 AM VEHICLE AND EQUIPMENT CLEANER Ordered by an unspecified provider. us Historical Provider LAB BLOOD ORDERABLES Bruna l Result documented in this encounter Visit Diagnoses Not on filedocumented in this encounter Additional Health Concerns Infection Onset Date Last Indicated Resolved Time COVID: Suspected 07/11/2022 07/11/2022 07/11/2022 11:42 AM VEHICLE AND EQUIPMENT CLEANER documented as of this encounter Care Teams Book Cutter Relationship Specialty Start Date End Date Adolfo Vera MD PCP - General 09/20/16 10/01/21 Telly Land MD [address] [place] [address] PCP - General Family Medicine 10/02/21 02/09/23 No, Physician PCP - General 02/10/23 04/15/23 Abram Burns MD PCP - General Family Medicine 04/16/23 Radha Milton WORK DISTRIBUTOR [address] [facility] [address] [address] Nurse Practitioner Obstetrics and Gynecology 10/03/21 documented as of this encounter
== END 2024-10-09 08:51 | disposition home or self-care (01) ==
LOC: ANHLAB 08:51
PROVIDERS: PCP Family Medicine; Visit Provider Nurse Practitioner Adult Health
DX: R05.2 Subacute cough (principal)
CPT/HCPCS: 87070; 87205

== ENCOUNTER 2024-10-27 10:58 | Outpatient (CLI) | payer OTHER, SELFPAY ==
--- NOTE | ~2024-10-27 | XR_ITS ---
Clinical Indication: Cough PA and lateral views of the chest: Comparison: 07/01/2024 Findings: The lungs are clear, without evidence of focal consolidation or pleural effusion. Cardiome diastinal silhouette is within normal limits. Chronic left rib fracture deformities are noted. Impression: Clear lungs. Reviewed, dictated and finalized at location . Impression: Clear lungs.
--- OUTSIDE RECORDS SUMMARY | 2024-10-27 11:52 | XMS_ITS | Encounter Summary ---
Author Organization [facility] Address [address] [place] [address] Phone Care Team Providers Care Wrecking Supervisor Name Role Phone Adolfo Vera MD Primary Care Provider [phone] Telly Land MD Primary Care Provider [phone] Radha Milton CONCESSION MANAGER Unavailable [phone] No, Physician Primary Care Provider [phone] Abram Burns MD Primary Care Provider [phone] Encounter Details Date Type Department Care Team (Late st Contact Info) Description 08/21/2017 Orders Only [facility] ProviderBranden MD [address] [place] [address] Social History Tobacco Use Types Packs/Day Years Used Date Smoking Tobacco: Never Smokeless Tobacco: Never Alcohol Use Standard Drinks/Week Comments Yes 0 (1 standard drink = 0.6 oz pur e alcohol) occasionally Comments No Sex and Gender Information Value Date Recorded Sex Assigned at Not on file Legal Sex Female 5:11 PM SANITATION TRUCK DRIVER Gender Identity Female 03/14/2021 8:24 PM CDT Sexual Orientation Straight 02/24/2020 3: 06 PM CDT documented as of this encounter Plan of Treatment Not on file documented as of this encounter Procedures Procedure Name Priority Date/Time Associated Diagnosis Comments DISCHARGE LABORATORY CUMULATIVE REPORT 08/21/2017 12:00 AM SANITATION TRUCK DRIVER documented in this encounter Results * DISCHARGE LABORATORY CUMULATIVE REPORT (08/21/2017 12:00 AM SANITATION TRUCK DRIVER) Narrative 08/21/2017 12:00 AM SANITATION TRUCK DRIVER Ordered by an unspecified provider. us Historical Provider LAB BLOOD ORDERABLES Bruna l Result documented in this encounter Visit Diagnoses Not on filedocumented in this encounter Additional Health Concerns Infection Onset Date Last Indicated Resolved Time COVID: Suspected 07/11/2022 07/11/2022 07/11/2022 11:42 AM SANITATION TRUCK DRIVER documented as of this encounter Care Teams Wrecking Supervisor Relationship Specialty Start Date End Date Adolfo Vera MD PCP - General 09/20/16 10/01/21 Telly Land MD [address] [place] [address] PCP - General Family Medicine 10/02/21 02/09/23 No, Physician PCP - General 02/10/23 04/15/23 Abram Burns MD PCP - General Family Medicine 04/16/23 Radha Milton CONCESSION MANAGER [address] [facility] [address] [address] Nurse Practitioner Obstetrics and Gynecology 10/03/21 documented as of this encounter
--- OUTSIDE RECORDS SUMMARY | 2024-10-27 11:52 | XMS_ITS | Clinical Summary ---
Author Organization [facility] Address [address] [place] [address] Care Team Providers Care Sprayer Automatic Spray Machine Name Role Phone Telly Land MD Primary Care Provider Source Comments [facility],non-owned Affiliates and Associated Physician Practices is amultiple site organization consisting of ambulatory clinics and hospital sitesin [place], [place], [place] and [place]. This disclosure is being madepursuant to the Care Everywhere program and may not contain all information available regarding this patient. Last updated 18.[facility] Allergies Active Allergy Reactions Criticality Noted Date [...] fluticasone propionate (Flonase) 50 MCG/ACT nasal spray Dewey 2 (two) sprays into each nostril once [...] on file Legal Sex Female 1:26 PM SOFTWARE SUPPORT ANALYST Gender Identity Not on file Sexual Orientation Not on file Last Filed Vital Signs Vital Sign Reading Time Taken Comments Blood Pressure 110/73 06/07/2022 6:30 PM SOFTWARE SUPPORT ANALYST Pulse 74 06/07/2022 6:30 PM SOFTWARE SUPPORT ANALYST Temperature 36.5 C (97.7 F) 06/07/2022 5:28 PM SOFTWARE SUPPORT ANALYST Respiratory Rate 16 06/07/2022 6:30 PM SOFTWARE SUPPORT ANALYST Oxygen Saturation 100% 06/07/2022 6:30 PM SOFTWARE SUPPORT ANALYST Inhaled Oxygen Concentration - - Weight 55.8 kg (123 lb) 06/07/2022 10:43 AM SOFTWARE SUPPORT ANALYST Height 152.4 cm (5') 06/07/2022 10:43 AM SOFTWARE SUPPORT ANALYST Body Mass Index 24.02 06/07/2022 10:43 AM SOFTWARE SUPPORT ANALYST Plan of Treatment Health Maintenance Due Date [...] Payer (Ef fective 2020-Present) Name:Zeeshan Queen Member ID:[id number] Relation to Subscriber:Self Name:KEVIN QUEEN Subscriber ID:[id number] Payer ID:Not on file Type:O Address: [place] [phone] Pay * Guarantor: ZEESHAN QUEEN Account Type Relation to Patient Date of Phone Billing Address Personal/Family 1965 [address] [place] [id number] [employer] Care Teams Sprayer Automatic Spray Machine Relationship Specialty Start Date End Date Telly Land MD [address] [place] [address] PCP - General Family Medicine 06/07/22
--- OUTSIDE RECORDS SUMMARY | 2024-10-27 11:52 | XMS_ITS | Clinical Summary ---
Author Organization [facility] Address [address] [place] [address] Care Team Providers Care Casting And Curing Operator Name Role Phone Radha Milton MARINE ENGINEERING TEACHER Unavailable [phone] Abram Burns MD Primary Care Provider [phone] Allergies Active Allergy Reactions Criticality Noted Date [...] spasms 30 tablet 06/13/20 22 Active multivitamin,tx- msmt-Px-NW-min 27-0.4 mg tablet Take by mouth Active [...] DAILY NEEDED FOR PAIN 07/19/19 25 Active Active Problems Problem Noted Date Diagnosed Date [...] we may need to undertake referral to master black belt. Respiratory allergy test screen has been ordered [...] 04/15/2019 Assessment & Plan (05/27/2019 4:57 PM HARBOR POLICE LAUNCH COMMANDER): Pepcid 40 mg at bedtime May continue Nasal saline as needed May stop Flonase May hold off on the Ztec until the Spring Call if no improvement [...] once daily thereafter. She is going to [place], so I did advise her to seek [...] 02/20/2018 Assessment & Plan (08/21/2017 12:10 PM HARBOR POLICE LAUNCH COMMANDER): Increasing fluid intake was recommended. Patient was [...] 2:30 PM CDT Office Visit [facility] [address] [place] [address] Fausto Fernandez MD Inflamed seborrheic keratosis (Primary Dx); Hypertrophic scar; Dermatofibroma; History of nonmelanoma skin cancer from Last 3 Months Immunizations Immunization Administration [...] Headache, migra ine Anemia Anemia; Comments : [facility] 09/23/2016 - Hx Other Medical stomach, bowel, or gallbladder problems; Comments: [facility] 09/23/2016 - Hx Other Medical female problems ; Comments: [facility] 09/23/2016 - Rosacea Insomnia Family History [...] on file Legal Sex Female 5:11 PM HARBOR POLICE LAUNCH COMMANDER Gender Identity Female 03/14/2021 8:24 PM CDT [...] Comments Blood Pressure 120/80 07/13/2024 9:11 AM HARBOR POLICE LAUNCH COMMANDER Pulse 76 02/10/2023 3:23 PM CDT Temperature 36.9 C (98.4 F) 07/11/2022 11:13 AM HARBOR POLICE LAUNCH COMMANDER Respiratory Rate 18 07/11/2022 11:13 AM HARBOR POLICE LAUNCH COMMANDER Oxygen Saturation 99% 09/12/2022 9:28 AM CDT Inhaled Oxygen Concentration - - Weight 61.7 kg (136 lb) 07/13/2024 9:11 AM HARBOR POLICE LAUNCH COMMANDER Height 152.4 cm (5') 02/10/2023 3:23 PM CDT Body Mass Index 26.56 02/10/2023 3:23 PM CDT Plan of Treatment Health Maintenance Due Date Last Done Comments Hepatitis C Screening 1965 Hepatitis B Screening 1984 DTaP/Tdap/Td Vaccine (2 - Td or Tdap) 10/12/2019 10/11/2009 Depression Screening 02/11/2024 02/10/2023, 09/12/2022, 07/09/2022, Additional history exists Covid-19 Vaccine ( - season) 2024 05/01/2021, 10/09/2020, 09/10/2020 Influenza Vaccine (#1) 2024 2, 05/22/2020, 04/22/2019, Additional history exists Breast Cancer [...] TO HPV GENOTYPES Routine 07/13/2024 10:03 AM HARBOR POLICE LAUNCH COMMANDER Well woman exam SCREENING MAMMOGRAM BILATERAL W STEVE Schedule Routine, Read Routine (OP Routine) 04/24/2023 7:47 AM CDT Encounter for breast cancer screening using non-mammogram modality HM COLONOSCOPY Routine 07/03/2020 from Last 3 Months or Most Recently Relevant to Health Maintenance Results * Pap and HPV, reflex to HPV Genotypes (07/13/2024 10:03 AM HARBOR POLICE LAUNCH COMMANDER) CLINICAL INFORMATION: [facility] Comment:Routine exam LMP [facility] Comment:POST MENOPAUSAL Previous Pap [facility] Comment:NONE GIVEN Prev. Bx [facility] Comment:NONE GIVEN SOURCE: [facility] Comment:Cervix, Endocervix Pap, specimen adequacy [facility] Comment: Satisfactory for evaluation. Endocervical/transformation zone component present. HPV interp [facility] Comment: Cytology Results: Negative for intraepithelial lesion or malignancy. COMMENTS [facility] Comment: This Pap test has been evaluated with computer assisted technology. Nutritionist [facility] Comment: BKA CT(ASCP) CT screening location: [place] [address] [address] [place] [address] Comment [facility] Comment: EXPLANATORY NOTE: The Pap is [...] High Risk E6/E7 Not Detected NOT DETECTED [facility] Comment: Not Detected High Risk HPV types (16,18,31,33,35,39,45,51,52, 56,58,59,66,68) were not detected. Other HPV types which cause anogenital lesions may be present. The significance of the other types of HPV in malignant processes has not been established. Methodology: Real Time PCR Thin prep-Endocervica l 07/13/2024 10:03 AM HARBOR POLICE LAUNCH COMMANDER 07/14/2024 2:51 AM HARBOR POLICE LAUNCH COMMANDER us José Miguel Lieberman MD LAB CYTOLOGY ORDERABLES Fi nal Result [facility] [address] [place] [address] [place] [address] [place] [address] * Screening Mammogram Bilateral W Steve (04/24/2023 [...] MAMMOGRAM BILATERAL W STEVE ORDERING HEALTHCARE PROVIDER: MELANIA MARTINEZ HISTORY: Routine screening mammography. COMPARISON: 01/31/2022, [...] suspicious finding in either breast on mammogram. Melania Martinez MARINE ENGINEERING TEACHER IMG MAMMO PROCEDURES Final Result * HM COLONOSCOPY (07/03/2020) Historical Provider HEALTH MAINTENANCE Final Result from Last 3 Months or Most Recently Relevant to Health Maintenance Insurance [facility] [address] [place] [id number] Member Subscriber Plan / Payer (Ef fective 2018-Present) Name:Osiris Queen Member ID:[id number] Relation to Subscriber:Spouse Name:SILVIA QUEEN Subscriber ID:[id number] Date of :1968 Address: [address] [place] [id number] Payer ID:[id number] Type:[employer] H[employer]/PPO Address: [place] [phone] [place] [phone] Care Teams Casting And Curing Operator Relationship Specialty Start Date End Date Abram Burns MD [address] [place] [address] [address] [place] [address] PCP - General Family Medicine 04/16/23 Radha Milton NP [address] [place] [address] [address] [place] [address] Nurse Practitioner Obstetrics and Gynecology 10/03/21
--- OUTSIDE RECORDS SUMMARY | 2024-10-27 11:52 | XMS_ITS | Referral Summary ---
Author Organization [facility] Address [address] [place] [address] Care Team Providers Care Home Health Care Case Manager Name Role Phone Radha Mitlon SENIOR RELIABILITY ENGINEER Unavailable [phone] Abram Burns MD Primary Care Provider [phone] Encounters Date Type Department Care Team Description 08/31/2024 2:30 PM CDT Office Visit [facility] [address] [place] [address] Fausto Fernandez MD Inflamed seborrheic keratosis (Primary Dx); Hypertrophic scar; Dermatofibroma; History of nonmelanoma skin cancer from Last 3 Months Allergies Active Allergy [...] as needed for muscle spasms 30 tablet 12/22/20 22 Active multivitamin,tx- xnmh-Sh-HI-min 27-0.4 mg tablet Take by mouth Active [...] we may need to undertake referral to school office assistant. Respiratory allergy test screen has been ordered [...] 04/15/2019 Assessment & Plan (05/27/2019 4:57 PM MANAGEMENT SUPERVISOR): Pepcid 40 mg at bedtime May continue Nasal saline as needed May stop Flonase May hold off on the Zyrtec until the Spring Call if no improvement [...] once daily thereafter. She is going to [place], so I did advise her to seek [...] 02/20/2018 Assessment & Plan (08/21/2017 12:10 PM MANAGEMENT SUPERVISOR): Increasing fluid intake was recommended. 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 Not on file Not on file Last Filed Vital Signs Vital Sign Reading Time Taken Comments Blood Pressure 120/80 07/13/2024 9:11 AM MANAGEMENT SUPERVISOR Pulse 76 02/10/2023 3:23 PM CDT Temperature 36.9 C (98.4 F) 07/11/2022 11:13 AM MANAGEMENT SUPERVISOR Respiratory Rate 18 07/11/2022 11:13 AM MANAGEMENT SUPERVISOR Oxygen Saturation 99% 09/12/2022 9:28 AM CDT Inhaled Oxygen Concentration - - Weight 61.7 kg (136 lb) 07/13/2024 9:11 AM MANAGEMENT SUPERVISOR Height 152.4 cm (5') 02/10/2023 3:23 PM CDT Body Mass Index 26.56 02/10/2023 3:23 PM CDT Plan of Treatment Not on file Procedures Procedure Name Priority Date/Time Associated Diagnosis Comments PAP AND HPV, REFLEX TO HPV GENOTYPES Routine 07/13/2024 10:03 AM MANAGEMENT SUPERVISOR Well woman exam SCREENING MAMMOGRAM BILATERAL W STEVE Schedule Routine, Read Routine (OP Routine) 04/24/2023 7:47 AM CDT Encounter for breast cancer screening using non-mammogram modality HM COLONOSCOPY Routine 07/03/2020 from Last 3 Months or Most Recently Relevant to Health Maintenance Results * Pap and HPV, reflex to HPV Genotypes (07/13/2024 10:03 AM MANAGEMENT SUPERVISOR) CLINICAL INFORMATION: [facility] Comment:Routine exam LMP [facility] Comment:POST MENOPAUSAL Previous Pap [facility] Comment:NONE GIVEN Prev. Bx [facility] Comment:NONE GIVEN SOURCE: [facility] Comment:Cervix, Endocervix Pap, specimen adequacy [facility] Comment: Satisfactory for evaluation. Endocervical/transformation zone component present. HPV interp [facility] Comment: Cytology Results: Negative for intraepithelial lesion or malignancy. COMMENTS [facility] Comment: This Pap test has been evaluated with computer assisted technology. Block Cleaner [facility] Comment: KADEN CADENA(ASCP) CT screening location: [place] [address] [place] [address] [facility] Comment: EXPLANATORY NOTE: The Pap is [...] High Risk E6/E7 Not Detected NOT DETECTED [facility] Comment: Not Detected High Risk HPV types (16,18,31,33,35,39,45,51,52, 56,58,59,66,68) were not detected. Other HPV types which cause anogenital lesions may be present. The significance of the other types of HPV in malignant processes has not been established. Methodology: Real Time PCR Thin prep-Endocervica l 07/13/2024 10:03 AM MANAGEMENT SUPERVISOR 07/14/2024 2:51 AM MANAGEMENT SUPERVISOR José Miguel Lieberman MD LAB CYTOLOGY ORDERABLES Fi nal Result [facility] [address] [place] [address] [address] * Screening Mammogram Bilateral W Steve (04/24/2023 [...] suspicious finding in either breast on mammogram. us Melania Martinez SENIOR RELIABILITY ENGINEER IMG MAMMO PROCEDURES Final Result * HM COLONOSCOPY (07/03/2020) us Historical Provider HEALTH MAINTENANCE Final Result from Last 3 Months or Most Recently Relevant to Health Maintenance Insurance [employer] [facility] [id number] [facility] [id number] Member Subscriber Plan / Payer (Ef fective 2018-Present) Name:Osiris Queen Member ID:[id number] Relation to Subscriber:Spouse Name:SILVIA QUEEN Subscriber ID:[id number] Date of :1968 Address: [address] [place] [address] Payer ID:[id number] Type:HE[employer] HMO/PPO Address: [address] [place] [id number] Care Teams Home Health Care Case Manager Relationship Specialty Start Date End Date Abram Burns MD [address] [facility] [facility] [address] [place] [address] PCP - General Family Medicine 04/16/23 Radha Milton NP [address] [facility] [address] [place] [address] Nurse Practitioner Obstetrics and Gynecology 10/03/21
--- OUTSIDE RECORDS SUMMARY | 2024-10-27 11:52 | XMS_ITS | Clinical Summary ---
Author Organization [facility] Address [address] [place] [address] Phone Care Team Providers Care Standard Machine Stitcher Name Role Phone Adolfo Vera MD Primary Care Provider [phone] Allergies Active Allergy Reactions Criticality Noted Date [...] Comments Blood Pressure 120/85 05/08/2018 10:31 AM INCUBATOR MACHINE OPERATOR Pulse 82 05/08/2018 10:31 AM INCUBATOR MACHINE OPERATOR Temperature 37 C (98.6 F) 05/08/2018 10:31 AM INCUBATOR MACHINE OPERATOR Respiratory Rate 11 05/08/2018 10:31 AM INCUBATOR MACHINE OPERATOR Oxygen Saturation 100% 05/08/2018 10:31 AM INCUBATOR MACHINE OPERATOR Inhaled Oxygen Concentration - - Weight 59 kg (130 lb) 05/08/2018 8:24 AM INCUBATOR MACHINE OPERATOR Height 152.4 cm (5') 05/08/2018 8:24 AM INCUBATOR MACHINE OPERATOR Body Mass Index 25.39 05/08/2018 8:24 AM INCUBATOR MACHINE OPERATOR Plan of Treatment Health Maintenance Due Date [...] Most Recently Relevant to Health Maintenance Insurance [facility] O[facility] Care Teams Standard Machine Stitcher Relationship Specialty Start Date End Date Adolfo Vera MD 2 [facility] [address] [address] PCP - General Internal Medicine 05/08/18
== END 2024-10-27 10:59 | disposition home or self-care (01) ==
PROVIDERS: PCP Family Medicine; Visit Provider Nurse Practitioner Family
DX: R05.3 Chronic cough (principal)
CPT/HCPCS: 71046

== ENCOUNTER 2024-11-04 14:38 | Outpatient (CLI) | payer OTHER, SELFPAY ==
--- NOTE | ~2024-11-04 | CT_ITS ---
EXAMINATION: CT sinus wo con DATE: 11/04/2024 15:11 INDICATION: Postnasal drip TECHNIQUE: Computed tomography (CT) of the paranasal sinuses was performed without intravenous contra st. The dose-length product was 203.72 mGy-cm. Automated exposure control and iterative reconstructio n technique were employed. COMPARISON: CT dated 01/28/2024 FINDINGS: mild mucosal thickening right maxillary sinus. Rightward nasal septal deviation. Ostiomeata l units are patent bilaterally. No air-fluid levels. No mucoperiosteal reaction. Mastoids are pneumat ized. IMPRESSION: 1. Mild right maxillary sinus disease without significant change. Reviewed, dictated and finalized at location A.
--- OUTSIDE RECORDS SUMMARY | 2024-11-04 14:43 | XMS_ITS | Clinical Summary ---
Author Organization [facility] Address [address] [place] [address] Phone Care Team Providers Care Family Welfare Social Work Professor Name Role Phone Adolfo Vera MD Primary Care Provider [phone] Allergies Active Allergy Reactions Criticality Noted Date [...] Comments Blood Pressure 120/85 05/08/2018 10:31 AM LOADING MACHINE ADJUSTER Pulse 82 05/08/2018 10:31 AM LOADING MACHINE ADJUSTER Temperature 37 C (98.6 F) 05/08/2018 10:31 AM LOADING MACHINE ADJUSTER Respiratory Rate 11 05/08/2018 10:31 AM LOADING MACHINE ADJUSTER Oxygen Saturation 100% 05/08/2018 10:31 AM LOADING MACHINE ADJUSTER Inhaled Oxygen Concentration - - Weight 59 kg (130 lb) 05/08/2018 8:24 AM LOADING MACHINE ADJUSTER Height 152.4 cm (5') 05/08/2018 8:24 AM LOADING MACHINE ADJUSTER Body Mass Index 25.39 05/08/2018 8:24 AM LOADING MACHINE ADJUSTER Plan of Treatment Health Maintenance Due Date [...] Most Recently Relevant to Health Maintenance Insurance [facility] OAP Care Teams Family Welfare Social Work Professor Relationship Specialty Start Date End Date Adolfo Vera MD 2 [facility] [address] [address] PCP - General Internal Medicine 05/08/18
--- OUTSIDE RECORDS SUMMARY | 2024-11-04 14:43 | XMS_ITS | Clinical Summary ---
Author Organization [facility] Address [address] [place] [address] Care Team Providers Care Senior Cytogenetic Technologist Name Role Phone Radha Milton ENVIRONMENTAL SERVICES DIRECTOR Unavailable [phone] Abram Burns MD Primary Care Provider [phone] Allergies Active Allergy Reactions Criticality Noted Date [...] spasms 30 tablet 06/13/20 22 Active multivitamin,tx- nhpa-Bl-KC-min 27-0.4 mg tablet Take by mouth Active [...] we may need to undertake referral to site acquisition specialist. Respiratory allergy test screen has been ordered [...] 04/15/2019 Assessment & Plan (05/27/2019 4:57 PM ROUTE CLERK): Pepcid 40 mg at bedtime May continue [...] once daily thereafter. She is going to [place], so I did advise her to seek [...] 02/20/2018 Assessment & Plan (08/21/2017 12:10 PM ROUTE CLERK): Increasing fluid intake was recommended. Patient was [...] Description 08/31/2024 2:30 PM CDT Office Visit [facility] [facility] [address] [place] [address] Fausto Fernandez MD Inflamed seborrheic [...] ine Anemia Anemia; Comments : [facility] 09/23/2016 - Hx Other Medical stomach, bowel, or gallbladder problems; Comments: [facility] 09/23/2016 - Hx Other Medical female problems ; Comments: [facility] 09/23/2016 - Rosacea Insomnia Family History Medical [...] on file Legal Sex Female 5:11 PM ROUTE CLERK Gender Identity Female 03/14/2021 8:24 PM CDT [...] Comments Blood Pressure 120/80 07/13/2024 9:11 AM ROUTE CLERK Pulse 76 02/10/2023 3:23 PM CDT Temperature 36.9 C (98.4 F) 07/11/2022 11:13 AM ROUTE CLERK Respiratory Rate 18 07/11/2022 11:13 AM ROUTE CLERK Oxygen Saturation 99% 09/12/2022 9:28 AM CDT Inhaled Oxygen Concentration - - Weight 61.7 kg (136 lb) 07/13/2024 9:11 AM ROUTE CLERK Height 152.4 cm (5') 02/10/2023 3:23 PM [...] TO HPV GENOTYPES Routine 07/13/2024 10:03 AM ROUTE CLERK Well woman exam SCREENING MAMMOGRAM BILATERAL W STEVE Schedule Routine, Read Routine (OP Routine) 04/24/2023 7:47 AM CDT Encounter for breast cancer screening using non-mammogram modality HM COLONOSCOPY Routine 07/03/2020 from Last 3 Months or Most Recently Relevant to Health Maintenance Results * Pap and HPV, reflex to HPV Genotypes (07/13/2024 10:03 AM ROUTE CLERK) CLINICAL INFORMATION: [facility] Comment:Routine exam LMP [facility] Comment:POST MENOPAUSAL Previous Pap [facility] Comment:NONE GIVEN Prev. Bx [facility] Comment:NONE GIVEN SOURCE: [facility] Comment:Cervix, Endocervix Pap, specimen adequacy [facility] Comment: Satisfactory for evaluation. Endocervical/transformation zone component present. HPV interp [facility] Comment: Cytology Results: Negative for intraepithelial lesion or malignancy. COMMENTS [facility] Comment: This Pap test has been evaluated with computer assisted technology. Furniture Sprayer [facility] Comment: BKA CT(ASCP) CT screening location: [place] [address] [address] [place] [address] Comment [facility] Comment: EXPLANATORY NOTE: The Pap is [...] Risk E6/E7 Not Detected NOT DETECTED [facility] Comment: Not Detected High Risk HPV types (16,18,31,33,35,39,45,51,52, 56,58,59,66,68) were not detected. Other HPV types which cause anogenital lesions may be present. The significance of the other types of HPV in malignant processes has not been established. Methodology: Real Time PCR Thin prep-Endocervica l 07/13/2024 10:03 AM ROUTE CLERK 07/14/2024 2:51 AM ROUTE CLERK us José Miguel Lieberman MD LAB CYTOLOGY ORDERABLES Fi nal Result [facility] [address] [place] [address] [place] [address] [place] [address] * Screening Mammogram Bilateral W Steve (04/24/2023 [...] in either breast on mammogram. Melania Martinez ENVIRONMENTAL SERVICES DIRECTOR IMG MAMMO PROCEDURES Final Result * HM COLONOSCOPY (07/03/2020) Historical Provider HEALTH MAINTENANCE Final Result from Last 3 Months or Most Recently Relevant to Health Maintenance Insurance [facility] [address] [place] [id number] Member Subscriber Plan / Payer (Ef fective 2018-Present) Name:Osiris Queen Member ID:[id number] Relation to Subscriber:Spouse Name:SILVIA QUEEN Subscriber ID:[id number] Date of :1968 Address: [address] [place] [address] Payer ID:[id number] Type:[employer] HMO/PPO Address: [place] [id number] [place] [id number] Care Teams Senior Cytogenetic Technologist Relationship Specialty Start Date End Date Abram Burns MD [address] [place] [address] [address] [place] [address] PCP - General Family Medicine 04/16/23 Radha Milton NP [address] [place] [address] [address] [place] [address] Nurse Practitioner Obstetrics and Gynecology 10/03/21
--- OUTSIDE RECORDS SUMMARY | 2024-11-04 14:43 | XMS_ITS | Referral Summary ---
Author Organization [facility] Address [address] [place] [address] Care Team Providers Care Artist Manager Name Role Phone Radha Milton SOFT WORK WRAPPER EXAMINER Unavailable [phone] Abram Burns MD Primary Care Provider [phone] Encounters Date Type Department Care Team Description 08/31/2024 2:30 PM CDT Office Visit [facility] D[facility]ology [address] [facility] [address] [place] [address] Fausto Fernandez MD Inflamed seborrheic [...] spasms 30 tablet 12/22/20 22 Active multivitamin,tx- feps-Zy-JC-min 27-0.4 mg tablet Take by mouth Active [...] we may need to undertake referral to strategic manager. Respiratory allergy test screen has been ordered [...] 04/15/2019 Assessment & Plan (05/27/2019 4:57 PM WORK MEASUREMENT ENGINEER): Pepcid 40 mg at bedtime May continue [...] once daily thereafter. She is going to [place], so I did advise her to seek [...] 02/20/2018 Assessment & Plan (08/21/2017 12:10 PM WORK MEASUREMENT ENGINEER): Increasing fluid intake was recommended. 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 Not on file Not on file Last Filed Vital Signs Vital Sign Reading Time Taken Comments Blood Pressure 120/80 07/13/2024 9:11 AM WORK MEASUREMENT ENGINEER Pulse 76 02/10/2023 3:23 PM CDT Temperature 36.9 C (98.4 F) 07/11/2022 11:13 AM WORK MEASUREMENT ENGINEER Respiratory Rate 18 07/11/2022 11:13 AM WORK MEASUREMENT ENGINEER Oxygen Saturation 99% 09/12/2022 9:28 AM CDT Inhaled Oxygen Concentration - - Weight 61.7 kg (136 lb) 07/13/2024 9:11 AM WORK MEASUREMENT ENGINEER Height 152.4 cm (5') 02/10/2023 3:23 PM CDT Body Mass Index 26.56 02/10/2023 3:23 PM CDT Plan of Treatment Not on file Procedures Procedure Name Priority Date/Time Associated Diagnosis Comments PAP AND HPV, REFLEX TO HPV GENOTYPES Routine 07/13/2024 10:03 AM WORK MEASUREMENT ENGINEER Well woman exam SCREENING MAMMOGRAM BILATERAL W STEVE Schedule Routine, Read Routine (OP Routine) 04/24/2023 7:47 AM CDT Encounter for breast cancer screening using non-mammogram modality HM COLONOSCOPY Routine 07/03/2020 from Last 3 Months or Most Recently Relevant to Health Maintenance Results * Pap and HPV, reflex to HPV Genotypes (07/13/2024 10:03 AM WORK MEASUREMENT ENGINEER) CLINICAL INFORMATION: [facility] Comment:Routine exam LMP [facility] Comment:POST MENOPAUSAL Previous Pap [facility] Comment:NONE GIVEN Prev. Bx [facility] Comment:NONE GIVEN SOURCE: [facility] Comment:Cervix, Endocervix Pap, specimen adequacy [facility] Comment: Satisfactory for evaluation. Endocervical/transformation zone component present. HPV interp [facility] Comment: Cytology Results: Negative for intraepithelial lesion or malignancy. COMMENTS [facility] Comment: This Pap test has been evaluated with computer assisted technology. Medical Technologist [facility] Comment: KADEN CADENA(ASCP) CT screening location: [place] [address] [place] [address] Comment [facility] Comment: EXPLANATORY NOTE: The Pap is a [...] High Risk E6/E7 Not Detected NOT DETECTED [facility] Comment: Not Detected High Risk HPV types (16,18,31,33,35,39,45,51,52, 56,58,59,66,68) were not detected. Other HPV types which cause anogenital lesions may be present. The significance of the other types of HPV in malignant processes has not been established. Methodology: Real Time PCR Thin prep-Endocervica l 07/13/2024 10:03 AM WORK MEASUREMENT ENGINEER 07/14/2024 2:51 AM WORK MEASUREMENT ENGINEER José Miguel Lieberman MD LAB CYTOLOGY ORDERABLES Fi nal Result [facility] [address] [place] [address] [address] * Screening Mammogram Bilateral W Steve (04/24/2023 [...] either breast on mammogram. us Melania Martinez SOFT WORK WRAPPER EXAMINER IMG MAMMO PROCEDURES Final Result * HM COLONOSCOPY (07/03/2020) us Historical Provider HEALTH MAINTENANCE Final Result from Last 3 Months or Most Recently Relevant to Health Maintenance Insurance [employer] [facility] [address] [facility] [address] Member Subscriber Plan / Payer (Ef fective 2018-Present) Name:Osiris Queen Member ID:[id number] Relation to Subscriber:Spouse Name:SILVIA QUEEN Subscriber ID:[id number] Date of :1968 Address: [address] [place] [address] Payer ID:[id number] Type:[employer] HMO/PPO Address: [address] [place] [id number] Care Teams Artist Manager Relationship Specialty Start Date End Date Abram Burns MD [address] [facility] [address] [place] [address] PCP - General Family Medicine 04/16/23 Radha Milton NP [address] [facility] [address] [place] [address] Nurse Practitioner Obstetrics and Gynecology 10/03/21
--- OUTSIDE RECORDS SUMMARY | 2024-11-04 14:43 | XMS_ITS | Clinical Summary ---
Author Organization [facility] Address [address] [facility] [place] [address] Care Team Providers Care Floater Operator Name Role Phone Telly Land MD Primary Care Provider Source Comments [facility],non-owned Affiliates and Associated Physician Practices is amultiple site organization consisting of ambulatory clinics and hospital sitesin [place], [place], [place] and [place]. This disclosure is being madepursuant to the Care Everywhere program and may not contain all information available regarding this patient. Last updated 18.[facility] Allergies Active Allergy Reactions Criticality Noted Date [...] fluticasone propionate (Flonase) 50 MCG/ACT nasal spray Hunter 2 (two) sprays into each nostril once [...] on file Legal Sex Female 1:26 PM BELLHOP Gender Identity Not on file Sexual Orientation Not on file Last Filed Vital Signs Vital Sign Reading Time Taken Comments Blood Pressure 110/73 06/07/2022 6:30 PM BELLHOP Pulse 74 06/07/2022 6:30 PM BELLHOP Temperature 36.5 C (97.7 F) 06/07/2022 5:28 PM BELLHOP Respiratory Rate 16 06/07/2022 6:30 PM BELLHOP Oxygen Saturation 100% 06/07/2022 6:30 PM BELLHOP Inhaled Oxygen Concentration - - Weight 55.8 kg (123 lb) 06/07/2022 10:43 AM BELLHOP Height 152.4 cm (5') 06/07/2022 10:43 AM BELLHOP Body Mass Index 24.02 06/07/2022 10:43 AM BELLHOP Plan of Treatment Health Maintenance Due Date [...] Payer (Ef fective 2020-Present) Name:Zeeshan Queen Member ID:[id number] Relation to Subscriber:Self Name:KEVIN QUEEN Subscriber ID:[id number] Payer ID:Not on file Type:O Address: [place] [phone] Pay * Guarantor: ZEESHAN QUEEN Account Type Relation to Patient Date of Phone Billing Address Personal/Family 1965 [address] [place] [id number] [employer] Care Teams Floater Operator Relationship Specialty Start Date End Date Telly Land MD [address] [place] [address] PCP - General Family Medicine 06/07/22
--- OUTSIDE RECORDS SUMMARY | 2024-11-04 14:43 | XMS_ITS | Encounter Summary ---
Author Organization [facility] Address [address] [place] [address] Phone Care Team Providers Care Veterinary Medicine Teacher Name Role Phone Adolfo Vera MD Primary Care Provider [phone] Telly Land MD Primary Care Provider [phone] Radha Milton SIPHONER Unavailable [phone] No, Physician Primary Care Provider [phone] Abram Burns MD Primary Care Provider [phone] Encounter Details Date Type Department Care Team (Late st Contact Info) Description 08/21/2017 Orders Only [facility] ProviderBranden MD [address] [place] [address] Social History Tobacco Use Types Packs/Day Years Used Date Smoking Tobacco: Never Smokeless Tobacco: Never Alcohol Use Standard Drinks/Week Comments Yes 0 (1 standard drink = 0.6 oz pur e alcohol) occasionally Comments No Sex and Gender Information Value Date Recorded Sex Assigned at Not on file Legal Sex Female 5:11 PM AQUACULTURAL WORKER SUPERVISOR Gender Identity Female 03/14/2021 8:24 PM CDT Sexual Orientation Straight 02/24/2020 3: 06 PM CDT documented as of this encounter Plan of Treatment Not on file documented as of this encounter Procedures Procedure Name Priority Date/Time Associated Diagnosis Comments DISCHARGE LABORATORY CUMULATIVE REPORT 08/21/2017 12:00 AM AQUACULTURAL WORKER SUPERVISOR documented in this encounter Results * DISCHARGE LABORATORY CUMULATIVE REPORT (08/21/2017 12:00 AM AQUACULTURAL WORKER SUPERVISOR) Narrative 08/21/2017 12:00 AM AQUACULTURAL WORKER SUPERVISOR Ordered by an unspecified provider. us Historical Provider LAB BLOOD ORDERABLES Bruna l Result documented in this encounter Visit Diagnoses Not on filedocumented in this encounter Additional Health Concerns Infection Onset Date Last Indicated Resolved Time COVID: Suspected 07/11/2022 07/11/2022 07/11/2022 11:42 AM AQUACULTURAL WORKER SUPERVISOR documented as of this encounter Care Teams Veterinary Medicine Teacher Relationship Specialty Start Date End Date Adolfo Vera MD PCP - General 09/20/16 10/01/21 Telly Land MD [address] [place] [address] PCP - General Family Medicine 10/02/21 02/09/23 No, Physician PCP - General 02/10/23 04/15/23 Abram Burns MD PCP - General Family Medicine 04/16/23 Radha Milton SIPHONER [address] [facility] [address] [address] Nurse Practitioner Obstetrics and Gynecology 10/03/21 documented as of this encounter
== END 2024-11-04 14:39 | disposition home or self-care (01) ==
PROVIDERS: PCP Family Medicine; Visit Provider Otolaryngology
DX: J01.00 Acute maxillary sinusitis, unspecified (principal); R09.82 Postnasal drip
CPT/HCPCS: 70486